=== PATIENT | male | born 1940 | race Caucasian/White ===

== ENCOUNTER → 2018-01-30 10:20 | Outpatient (CLI) | payer MEDICARE, SELFPAY ==
[2018-01-30 13:31] LABS: Absolute Lymphocyte Count 2.28 X10^3/ul (0.83-4.51); Absolute Neutrophil Count 1.5 X10^3/uL (2.0-7.7); Basophil# 0.01 X10^3/uL; Basophil% 0.2 % (0-1); Eosinophil# 0.11 X10^3/uL; Eosinophils% 2.5 % (0-5); Hematocrit 40.6 % (40-54); Hemoglobin 13.7 g/dl (13.0-16.5); Lymphocyte # 2.28 X10^3/ul (4.0); Lymphocyte % 51.7 % (19-41); Mean Corp Hgb Conc 33.7 g/gl (32-36); Mean Corpuscular Hgb 34.3 pg (27.0-32.0); Mean Corpuscular Volume 101.8 fL (80-94); Mean Platelet Vol. 10.3 fl (6.2-12.0); Monocyte# 0.49 X10^3/uL; Monocyte% 11.1 % (0-10); Neutrophil # 1.51 X10^3/uL (2.7-7.7); Neutrophil % 34.3 % (47-70); Platelet Count 96 K/mm3 (150-450); RBC Distribution Width CV 13.9 % (11.6-14.6); RBC Distribution Width SD 50.9 fl (35.1-43.9); Red Blood Count 3.99 M/mm3 (4.6-6.2); White Blood Count 4.4 K/mm3 (4.4-11.0)
[2018-01-30 13:34] LABS: POSITIVE COUNT NO; POSITIVE DIFFERENTIAL NO; POSITIVE MORPHOLOGY NO
[2018-01-30 14:02] LABS: ALB/GLOB Ratio 0.9 RATIO (0.9-2.4); AST(SGOT) 26 U/L (15-37); Alanine Aminotransfer ALT/SGPT 27 U/L (16-61); Albumin, Serum 3.6 g/dL (3.2-5.0); Alkaline Phosphatase 102 U/L (45-117); Anion Gap 5 (5-15); BUN 12 mg/dL (7-18); BUN/Creat Ratio 12.9 RATIO (10-20); Calcium,Total 8.4 mg/dL (8.5-10.1); Chloride 107 mmol/L (98-107); Creatinine, Serum 0.93 mg/dL (0.70-1.30); EST Glomerular Filtration Rate 84 mL/min (>60); Est Glom Filt Rate - Afr Amer 102 mL/min (>60); Glucose 96 mg/dL (74-106); Potassium 3.9 mmol/L (3.5-5.1); Protein, Total 7.6 g/dL (6.4-8.2); Sodium Level 140 mmol/L (136-145); Thyroid Stim Hormone (TSH) 1.96 uIU/mL (0.358-3.74)
== END ==
PROVIDERS: Family Provider Family Medicine Geriatric Medicine; PCP Family Medicine Geriatric Medicine; Visit Provider Family Medicine Geriatric Medicine
DX: E11.9 Type 2 diabetes mellitus without complications (principal); I10 Essential (primary) hypertension; E55.9 Vitamin D deficiency, unspecified
CPT/HCPCS: 36415; 80053; 82306; 84403; 84443; 85025

== ENCOUNTER → 2018-07-28 13:56 | Outpatient (CLI) | payer MEDICARE, SELFPAY ==
[2018-07-28 15:16] LABS: Absolute Lymphocyte Count 2.24 X10^3/ul (0.83-4.51); Absolute Neutrophil Count 1.4 X10^3/uL (2.0-7.7); Basophil# 0.01 X10^3/uL; Basophil% 0.2 % (0-1); Eosinophil# 0.11 X10^3/uL; Eosinophils% 2.6 % (0-5); Hematocrit 41.5 % (40-54); Hemoglobin 13.7 g/dl (13.0-16.5); Lymphocyte # 2.24 X10^3/ul (4.0); Lymphocyte % 52.3 % (19-41); Mean Corpuscular Hgb 33.8 pg (27.0-32.0); Mean Corpuscular Volume 102.5 fL (80-94); Mean Platelet Vol. 10.9 fl (6.2-12.0); Monocyte# 0.54 X10^3/uL; Monocyte% 12.6 % (0-10); Neutrophil # 1.37 X10^3/uL (2.7-7.7); Neutrophil % 32.1 % (47-70); Platelet Count 96 K/mm3 (150-450); RBC Distribution Width CV 14.3 % (11.6-14.6); RBC Distribution Width SD 53.2 fl (35.1-43.9); Red Blood Count 4.05 M/mm3 (4.6-6.2); White Blood Count 4.3 K/mm3 (4.4-11.0)
[2018-07-28 15:22] LABS: POSITIVE COUNT NO; POSITIVE DIFFERENTIAL NO; POSITIVE MORPHOLOGY NO
[2018-07-28 16:03] LABS: Vitamin D,25 Hydroxy 29.5 ng/mL (29.95-100.01)
[2018-07-28 16:08] LABS: ALB/GLOB Ratio 0.9 RATIO (0.9-2.4); AST(SGOT) 19 U/L (15-37); Alanine Aminotransfer ALT/SGPT 26 U/L (16-61); Albumin, Serum 3.5 g/dL (3.2-5.0); Alkaline Phosphatase 97 U/L (45-117); Anion Gap 6 (5-15); BUN 14 mg/dL (7-18); Calcium,Total 8.7 mg/dL (8.5-10.1); Chloride 107 mmol/L (98-107); Cholesterol 159 mg/dL (200); Creatinine, Serum 0.93 mg/dL (0.70-1.30); EST Glomerular Filtration Rate 84 mL/min (>60); Est Glom Filt Rate - Afr Amer 101 mL/min (>60); Globulin 3.9 g/dL (2.2-4.2); Glucose 84 mg/dL (74-106); High Density Lipoprotein 41 mg/dL; Potassium 3.9 mmol/L (3.5-5.1); Protein, Total 7.4 g/dL (6.4-8.2); Sodium Level 144 mmol/L (136-145); Thyroid Stim Hormone (TSH) 2.04 uIU/mL (0.358-3.74); Triglycerides 213 mg/dL; Very Low Density Lipoprotein 43 mg/dL (5-40)
== END ==
PROVIDERS: Family Provider Family Medicine Geriatric Medicine; PCP Family Medicine Geriatric Medicine; Referring Provider Family Medicine Geriatric Medicine; Visit Provider Family Medicine Geriatric Medicine
DX: E11.9 Type 2 diabetes mellitus without complications (principal); I10 Essential (primary) hypertension; E55.9 Vitamin D deficiency, unspecified; E23.6 Other disorders of pituitary gland; E78.49 Other hyperlipidemia
CPT/HCPCS: 36415; 80053; 80061; 82306; 84403; 84443; 85025

== ENCOUNTER → 2019-02-01 13:01 | Outpatient (CLI) | payer MEDICARE, SELFPAY ==
[2019-02-01 13:51] LABS: Absolute Lymphocyte Count 2.44 X10^3/ul (0.83-4.51); Absolute Neutrophil Count 1.4 X10^3/uL (2.0-7.7); Basophil# 0.01 X10^3/uL; Basophil% 0.2 % (0-1); Eosinophil# 0.09 X10^3/uL; Eosinophils% 2.1 % (0-5); Hematocrit 37.7 % (40-54); Hemoglobin 12.7 g/dl (13.0-16.5); Lymphocyte # 2.44 X10^3/ul (4.0); Lymphocyte % 55.8 % (19-41); Mean Corp Hgb Conc 33.7 g/gl (32-36); Mean Corpuscular Volume 101.1 fL (80-94); Mean Platelet Vol. 10.2 fl (6.2-12.0); Monocyte# 0.41 X10^3/uL; Monocyte% 9.4 % (0-10); Neutrophil # 1.41 X10^3/uL (2.7-7.7); Neutrophil % 32.3 % (47-70); Platelet Count 105 K/mm3 (150-450); RBC Distribution Width CV 14.3 % (11.6-14.6); RBC Distribution Width SD 52.7 fl (35.1-43.9); Red Blood Count 3.73 M/mm3 (4.6-6.2); White Blood Count 4.4 K/mm3 (4.4-11.0)
[2019-02-01 13:59] LABS: POSITIVE COUNT NO; POSITIVE DIFFERENTIAL NO; POSITIVE MORPHOLOGY NO
[2019-02-01 14:19] LABS: AST(SGOT) 31 U/L (15-37); Alanine Aminotransfer ALT/SGPT 30 U/L (16-61); Albumin, Serum 3.5 g/dL (3.2-5.0); Alkaline Phosphatase 95 U/L (45-117); Anion Gap 4 (5-15); BUN 12 mg/dL (7-18); BUN/Creat Ratio 12.4 RATIO (10-20); Calcium,Total 8.8 mg/dL (8.5-10.1); Chloride 108 mmol/L (98-107); Cholesterol 162 mg/dL (200); Creatinine, Serum 0.97 mg/dL (0.70-1.30); EST Glomerular Filtration Rate 80 mL/min (>60); Est Glom Filt Rate - Afr Amer 97 mL/min (>60); Globulin 3.6 g/dL (2.2-4.2); Glucose 103 mg/dL (74-106); High Density Lipoprotein 40 mg/dL; Potassium 3.9 mmol/L (3.5-5.1); Protein, Total 7.1 g/dL (6.4-8.2); Sodium Level 143 mmol/L (136-145); Triglycerides 266 mg/dL; Very Low Density Lipoprotein 53 mg/dL (5-40); Vitamin D,25 Hydroxy 25.3 ng/mL (29.95-100.01)
== END ==
PROVIDERS: Family Provider Family Medicine Geriatric Medicine; PCP Family Medicine Geriatric Medicine; Referring Provider Family Medicine Geriatric Medicine; Visit Provider Family Medicine Geriatric Medicine
DX: I10 Essential (primary) hypertension (principal); E55.9 Vitamin D deficiency, unspecified; E23.6 Other disorders of pituitary gland; E78.5 Hyperlipidemia, unspecified
CPT/HCPCS: 36415; 80053; 80061; 82306; 84403; 84443; 85025

== ENCOUNTER → 2019-08-08 11:46 | Outpatient (CLI) | payer MEDICARE, SELFPAY ==
[2019-08-08 12:15] LABS: Absolute Lymphocyte Count 2.38 X10^3/uL (0.83-4.51); Absolute Neutrophil Count 1.5 X10^3/uL (2.0-7.7); Basophil# 0.02 X10^3/uL; Basophil% 0.4 % (0-1); Eosinophil# 0.13 X10^3/uL; Eosinophils% 2.9 % (0-5); Hematocrit 40.1 % (40-54); Hemoglobin 13.2 g/dL (13.0-16.5); Lymphocyte # 2.38 X10^3/ul (4.0); Lymphocyte % 53.4 % (19-41); Mean Corp Hgb Conc 32.9 g/dL (32-36); Mean Corpuscular Hgb 33.7 pg (27.0-32.0); Mean Corpuscular Volume 102.3 fL (80-94); Mean Platelet Vol. 10.1 fl (6.2-12.0); Monocyte# 0.44 X10^3/uL; Monocyte% 9.9 % (0-10); NRBC Flagged by Analyzer 0 % (0-5); Neutrophil # 1.48 X10^3/uL (2.7-7.7); Neutrophil % 33.2 % (47-70); Platelet Count 103 K/mm3 (150-450); RBC Distribution Width CV 14.2 % (11.6-14.6); RBC Distribution Width SD 53.1 fl (35.1-43.9); Red Blood Count 3.92 M/mm3 (4.6-6.2); White Blood Count 4.5 K/mm3 (4.4-11.0)
[2019-08-08 12:49] LABS: ALB/GLOB Ratio 0.9 RATIO (0.9-2.4); AST(SGOT) 26 U/L (15-37); Alanine Aminotransfer ALT/SGPT 24 U/L (16-61); Albumin, Serum 3.7 g/dL (3.2-5.0); Alkaline Phosphatase 105 U/L (45-117); Anion Gap 4 (5-15); BUN 15 mg/dL (7-18); BUN/Creat Ratio 14.7 RATIO (10-20); Calcium,Total 8.7 mg/dL (8.5-10.1); Chloride 108 mmol/L (98-107); Cholesterol 156 mg/dL (200); Creatinine, Serum 1.02 mg/dL (0.70-1.30); EST Glomerular Filtration Rate 75 mL/min (>60); Est Glom Filt Rate - Afr Amer 91 mL/min (>60); Glucose 101 mg/dL (74-106); High Density Lipoprotein 49 mg/dL; Potassium 3.9 mmol/L (3.5-5.1); Protein, Total 7.7 g/dL (6.4-8.2); Sodium Level 140 mmol/L (136-145); Thyroid Stim Hormone (TSH) 1.82 uIU/mL (0.358-3.74); Triglycerides 181 mg/dL; Very Low Density Lipoprotein 36 mg/dL (5-40)
== END ==
PROVIDERS: Family Provider Family Medicine Geriatric Medicine; PCP Family Medicine Geriatric Medicine; Referring Provider Family Medicine Geriatric Medicine; Visit Provider Family Medicine Geriatric Medicine
DX: E11.9 Type 2 diabetes mellitus without complications (principal); I10 Essential (primary) hypertension; E78.5 Hyperlipidemia, unspecified; E55.9 Vitamin D deficiency, unspecified; E23.6 Other disorders of pituitary gland
CPT/HCPCS: 36415; 80053; 80061; 82306; 83036; 84403; 84443; 85025

== ENCOUNTER → 2020-04-03 15:11 | Outpatient (CLI) | payer MEDICARE, SELFPAY ==
[2020-04-03 15:46] LABS: Absolute Lymphocyte Count 2.69 X10^3/uL (0.83-4.51); Absolute Neutrophil Count 1.3 X10^3/uL (2.0-7.7); Basophil# 0.02 X10^3/uL; Basophil% 0.4 % (0-1); Eosinophil# 0.12 X10^3/uL; Eosinophils% 2.6 % (0-5); Lymphocyte # 2.69 X10^3/ul (4.0); Lymphocyte % 58.7 % (19-41); Mean Corp Hgb Conc 33.3 g/dL (32-36); Mean Corpuscular Hgb 34.5 pg (27.0-32.0); Mean Corpuscular Volume 103.4 fL (80-94); Mean Platelet Vol. 10.3 fl (6.2-12.0); Monocyte# 0.45 X10^3/uL; Monocyte% 9.8 % (0-10); NRBC Flagged by Analyzer 0 % (0-5); Neutrophil # 1.29 X10^3/uL (2.7-7.7); Neutrophil % 28.3 % (47-70); Platelet Count 108 K/mm3 (150-450); RBC Distribution Width CV 14.4 % (11.6-14.6); RBC Distribution Width SD 54.7 fl (35.1-43.9); Red Blood Count 3.77 M/mm3 (4.6-6.2); White Blood Count 4.6 K/mm3 (4.4-11.0)
[2020-04-03 16:34] LABS: ALB/GLOB Ratio 0.9 RATIO (0.9-2.4); AST(SGOT) 23 U/L (15-37); Alanine Aminotransfer ALT/SGPT 30 U/L (16-61); Albumin, Serum 3.6 g/dL (3.2-5.0); Alkaline Phosphatase 97 U/L (45-117); Anion Gap 4 (5-15); BUN 17 mg/dL (7-18); BUN/Creat Ratio 14.9 RATIO (10-20); Chloride 106 mmol/L (98-107); Cholesterol 138 mg/dL (200); Creatinine, Serum 1.14 mg/dL (0.70-1.30); EST Glomerular Filtration Rate 66 mL/min (>60); Est Glom Filt Rate - Afr Amer 80 mL/min (>60); Globulin 3.8 g/dL (2.2-4.2); Glucose 108 mg/dL (74-106); High Density Lipoprotein 42 mg/dL; Potassium 3.9 mmol/L (3.5-5.1); Protein, Total 7.4 g/dL (6.4-8.2); Sodium Level 143 mmol/L (136-145); Triglycerides 253 mg/dL; Very Low Density Lipoprotein 51 mg/dL (5-40)
[2020-04-03 16:53] LABS: Vitamin D,25 Hydroxy 39.5 ng/mL
== END ==
PROVIDERS: PCP Family Medicine Geriatric Medicine; Referring Provider Family Medicine Geriatric Medicine; Visit Provider Family Medicine Geriatric Medicine
DX: I10 Essential (primary) hypertension (principal); E78.5 Hyperlipidemia, unspecified; E23.6 Other disorders of pituitary gland; E55.9 Vitamin D deficiency, unspecified
CPT/HCPCS: 36415; 80053; 80061; 82306; 84403; 84443; 85025

== ENCOUNTER → 2020-09-29 13:44 | Outpatient (CLI) | payer MEDICARE, SELFPAY ==
[2020-09-29 17:26] LABS: Absolute Lymphocyte Count 2.39 X10^3/uL (0.83-4.51); Absolute Neutrophil Count 1.8 X10^3/uL (2.0-7.7); Basophil# 0.02 X10^3/uL; Basophil% 0.4 % (0-1); Eosinophil# 0.13 X10^3/uL; Eosinophils% 2.6 % (0-5); Hematocrit 39.8 % (40-54); Hemoglobin 13.1 g/dL (13.0-16.5); Lymphocyte # 2.39 X10^3/ul (4.0); Lymphocyte % 48.6 % (19-41); Mean Corp Hgb Conc 32.9 g/dL (32-36); Mean Corpuscular Volume 103.4 fL (80-94); Monocyte# 0.57 X10^3/uL; Monocyte% 11.6 % (0-10); NRBC Flagged by Analyzer 0 % (0-5); Neutrophil % 36.6 % (47-70); Platelet Count 110 K/mm3 (150-450); RBC Distribution Width CV 14.6 % (11.6-14.6); RBC Distribution Width SD 54.6 fl (35.1-43.9); Red Blood Count 3.85 M/mm3 (4.6-6.2); White Blood Count 4.9 K/mm3 (4.4-11.0)
[2020-09-29 17:53] LABS: Vitamin D,25 Hydroxy 41.7 ng/mL
[2020-09-29 17:56] LABS: ALB/GLOB Ratio 0.9 RATIO (0.9-2.4); AST(SGOT) 20 U/L (15-37); Alanine Aminotransfer ALT/SGPT 22 U/L (16-61); Albumin, Serum 3.6 g/dL (3.2-5.0); Alkaline Phosphatase 107 U/L (45-117); Anion Gap 5 (5-15); BUN 13 mg/dL (7-18); BUN/Creat Ratio 11.7 RATIO (10-20); Chloride 109 mmol/L (98-107); Cholesterol 141 mg/dL (200); Creatinine, Serum 1.11 mg/dL (0.70-1.30); EST Glomerular Filtration Rate 68 mL/min (>60); Est Glom Filt Rate - Afr Amer 82 mL/min (>60); Globulin 3.8 g/dL (2.2-4.2); Glucose 82 mg/dL (74-106); High Density Lipoprotein 45 mg/dL; Potassium 3.7 mmol/L (3.5-5.1); Protein, Total 7.4 g/dL (6.4-8.2); Sodium Level 143 mmol/L (136-145); Triglycerides 191 mg/dL; Very Low Density Lipoprotein 38 mg/dL (5-40)
[2020-09-29 18:43] LABS: Hemoglobin A1c 5.4 % (3.8-5.6)
== END ==
PROVIDERS: PCP Family Medicine Geriatric Medicine; Visit Provider Family Medicine Geriatric Medicine
DX: E11.9 Type 2 diabetes mellitus without complications (principal); E23.6 Other disorders of pituitary gland; I10 Essential (primary) hypertension; E78.5 Hyperlipidemia, unspecified; E55.9 Vitamin D deficiency, unspecified
CPT/HCPCS: 36415; 80053; 80061; 82306; 83036; 84403; 85025

== ENCOUNTER → 2021-04-13 08:17 | Outpatient (CLI) | payer MEDICARE, SELFPAY ==
[2021-04-13 09:05] LABS: Absolute Lymphocyte Count 1.64 X10^3/uL (0.83-4.51); Absolute Neutrophil Count 1.1 X10^3/uL (2.0-7.7); Basophil# 0.01 X10^3/uL; Basophil% 0.3 % (0-1); Eosinophil# 0.12 X10^3/uL; Eosinophils% 3.7 % (0-5); Hemoglobin 11.9 g/dL (13.0-16.5); Lymphocyte # 1.64 X10^3/ul (0.83-4.51); Lymphocyte % 50.9 % (19-41); Mean Corp Hgb Conc 32.2 g/dL (32-36); Mean Corpuscular Hgb 31.4 pg (27.0-32.0); Mean Corpuscular Volume 97.6 fL (80-94); Mean Platelet Vol. 10.3 fl (6.2-12.0); Monocyte# 0.37 X10^3/uL; Monocyte% 11.5 % (0-10); NRBC Flagged by Analyzer 0 % (0-5); Neutrophil # 1.08 X10^3/uL (2.7-7.7); Neutrophil % 33.6 % (47-70); Platelet Count 109 K/mm3 (150-450); RBC Distribution Width CV 15.2 % (11.6-14.6); RBC Distribution Width SD 54.6 fl (35.1-43.9); Red Blood Count 3.79 M/mm3 (4.6-6.2); White Blood Count 3.2 K/mm3 (4.4-11.0)
[2021-04-13 09:27] LABS: Hemoglobin A1c 5.9 % (3.8-5.6)
[2021-04-13 09:47] LABS: AST(SGOT) 22 U/L (15-37); Alanine Aminotransfer ALT/SGPT 21 U/L (16-61); Albumin, Serum 3.5 g/dL (3.2-5.0); Alkaline Phosphatase 112 U/L (45-117); Anion Gap 7 (5-15); BUN 15 mg/dL (7-18); Calcium,Total 8.5 mg/dL (8.5-10.1); Chloride 105 mmol/L (98-107); Cholesterol 141 mg/dL (200); EST Glomerular Filtration Rate 77 mL/min (>60); Est Glom Filt Rate - Afr Amer 93 mL/min (>60); Globulin 3.6 g/dL (2.2-4.2); Glucose 148 mg/dL (74-106); High Density Lipoprotein 41 mg/dL; Potassium 3.8 mmol/L (3.5-5.1); Protein, Total 7.1 g/dL (6.4-8.2); Sodium Level 141 mmol/L (136-145); Thyroid Stim Hormone (TSH) 1.28 uIU/mL (0.358-3.74); Triglycerides 132 mg/dL; Very Low Density Lipoprotein 26 mg/dL (5-40)
== END ==
PROVIDERS: PCP Family Medicine Geriatric Medicine; Referring Provider Family Medicine Geriatric Medicine; Visit Provider Family Medicine Geriatric Medicine
DX: E11.9 Type 2 diabetes mellitus without complications (principal); I10 Essential (primary) hypertension; E23.6 Other disorders of pituitary gland; E78.5 Hyperlipidemia, unspecified; E55.9 Vitamin D deficiency, unspecified
CPT/HCPCS: 36415; 80053; 80061; 82306; 83036; 84403; 84443; 85025

== ENCOUNTER → 2021-05-14 10:01 | Outpatient (CLI) | payer MEDICARE, SELFPAY ==
[2021-05-14 10:36] LABS: Absolute Neutrophil Count 1.4 X10^3/uL (2.0-7.7); Basophil# 0.02 X10^3/uL; Basophil% 0.4 % (0-1); Eosinophil# 0.15 X10^3/uL; Eosinophils% 2.8 % (0-5); Hematocrit 36.9 % (40-54); Hemoglobin 11.9 g/dL (13.0-16.5); Lymphocyte % 57.5 % (19-41); Mean Corp Hgb Conc 32.2 g/dL (32-36); Mean Corpuscular Hgb 31.7 pg (27.0-32.0); Mean Corpuscular Volume 98.4 fL (80-94); Mean Platelet Vol. 10.8 fl (6.2-12.0); Monocyte# 0.71 X10^3/uL; Monocyte% 13.2 % (0-10); NRBC Flagged by Analyzer 0 % (0-5); Neutrophil # 1.41 X10^3/uL (2.7-7.7); Neutrophil % 26.1 % (47-70); Platelet Count 112 K/mm3 (150-450); RBC Distribution Width CV 15.9 % (11.6-14.6); RBC Distribution Width SD 56.7 fl (35.1-43.9); Red Blood Count 3.75 M/mm3 (4.6-6.2); White Blood Count 5.4 K/mm3 (4.4-11.0)
== END ==
PROVIDERS: PCP Family Medicine Geriatric Medicine; Referring Provider Family Medicine Geriatric Medicine; Visit Provider Family Medicine Geriatric Medicine
DX: D64.9 Anemia, unspecified (principal)
CPT/HCPCS: 36415; 85025

== ENCOUNTER 2021-08-13 11:27 | Emergency (ER) | payer MEDICARE, SELFPAY ==
[2021-08-13 11:28] VITALS: BP 167/79; PULSE 71; RESP 16; TEMP 36.2; O2SAT 98; BMI 31.3
--- NOTE | 2021-08-13 12:45 | EKG12_ITS ---
Test Reason : GI BLEED Blood Pressure : / mmHG Vent. Rate : 062 BPM Atrial Rate : 062 BPM P-R Int : 220 ms QRS Dur : 154 ms QT Int : 456 ms P-R-T Axes : 038 -29 117 degrees QTc Int : 462 ms Sinus rhythm with sinus arrhythmia with 1st degree A-V block Left bundle branch block Abnormal ECG Confirmed by JOSLYN GARCIAS, RAF ([id number]), purchasing expeditor OLI SANDY ([id number]) on 08/14/2021 1:52:22 PM Referred By: GLORIA Confirmed By:RAF JORGENSEN MD
[2021-08-13 13:14] VITALS: BP 162/88; PULSE 83; RESP 13; O2SAT 97
[2021-08-13 13:22] LABS: Absolute Neutrophil Count 2.4 X10^3/uL (2.0-7.7); Basophil# 0.01 X10^3/uL; Basophil% 0.2 % (0-1); Eosinophil# 0.06 X10^3/uL; Eosinophils% 1.3 % (0-5); Hematocrit 31.7 % (40-54); Hemoglobin 10.1 g/dL (13.0-16.5); Lymphocyte % 35.3 % (19-41); Mean Corp Hgb Conc 31.9 g/dL (32-36); Mean Corpuscular Hgb 30.9 pg (27.0-32.0); Mean Corpuscular Volume 96.9 fL (80-94); Mean Platelet Vol. 10.4 fl (6.2-12.0); Monocyte# 0.42 X10^3/uL; Monocyte% 9.3 % (0-10); NRBC Flagged by Analyzer 0 % (0-5); Neutrophil # 2.43 X10^3/uL (2.7-7.7); Neutrophil % 53.7 % (47-70); Platelet Count 101 K/mm3 (150-450); RBC Distribution Width CV 15.6 % (11.6-14.6); RBC Distribution Width SD 55.2 fl (35.1-43.9); Red Blood Count 3.27 M/mm3 (4.6-6.2); White Blood Count 4.5 K/mm3 (4.4-11.0)
--- NOTE | 2021-08-13 13:32 | ED.VIS.GI ---
HPI HPI - GI History of Present Illness Chief Complaint: GI Bleed Informant: patient Narrative Narrative: Patient is a 81-year-old male with history of thrombocytopenia, myelodysplastic syndrome, coronary artery disease, ulcerative colitis and total colectomy with ostomy presenting with black/red blood in his ostomy. He states it started last night. The bag is filled up twice and it was changed around 9 AM this morning. Patient states he feels a little wobbly and weak. He is not on any anticoagulation. He is on aspirin 81 mg daily. He is never had this before. He denies any history of acid reflux. He notes he eats [employer] office because he likes the way they taste. He denies any significant use of ibuprofen or alcohol. No abdominal pain. No other complaints at this time. PFSH PFSH Home Medications Lactobacillus rhamnosus GG [Culturelle Kids Probiotics] 1 ea PO DAILY PRN PRN 10/08/13 [History Last Taken 07/03/14 08:00] amlodipine 5 mg PO DAILY 07/20/16 [History Last Taken 07/20/16] losartan 100 mg PO DAILY 07/20/16 [History Last Taken 07/20/16] multivitamin [Daily Multiple] 1 ea PO DAILY 07/20/16 [History Last Taken 07/19/16] aspirin 81 mg PO DAILY@0800 tab.chew 07/21/16 [Rx Last Taken Unknown] atorvastatin 20 mg PO QHS #30 tablet 07/21/16 [Rx Last Taken Unknown] metoprolol succinate 50 mg PO DAILY #30 tablet 07/21/16 [Rx Last Taken Unknown] sertraline 50 mg PO DAILY #30 tablet 07/21/16 [Rx Last Taken Unknown] Allergy/AdvReac Type Severity Reaction Status Date / Time No Known Allergies Allergy Verified 08/13/21 11:33 Social History Smoking Status: Former smoker ROS ROS ED Constitutional Constitutional ED: Denies chills or fever(s) ENT ENT ED: Denies rhinorrhea or sore throat Cardiovascular Cardiovascular: Denies chest pain or palpitations Respiratory/Chest Respiratory/Chest: Denies cough or dyspnea Gastrointestinal Gastrointestinal: Reports melena; Denies abdominal pain, nausea or vomiting Genitourinary Genitourinary ED: Denies dysuria Musculoskeletal Musculoskeletal: Denies arthralgias or myalgias Integumentary Denies rash Neurologic Neurologic: Denies headache(s) or weakness Psychiatric Psychiatric: Denies depression EXAM Physical Exam Const Vital Signs: 08/13/21 11:28 08/13/21 13:14 08/13/21 14:28 Temperature 97.1 F L Temperature Source Temporal Pulse Rate 71 83 57 L Respiratory Rate 16 13 17 Blood Pressure 167/79 H 162/88 H 155/83 H Blood Pressure Mean 108 112 107 Pulse Ox 98 97 97 Oxygen Delivery Method Room Air Room Air Room Air Positive well nourished and well developed General Appearance ED: well developed; Negative for pallor HEENT Reports moist mucous membranes normocephalic Eyes PERRL and EOMs intact bilaterally General Eye ED: Negative for pale conjunctiva Neck no lymphadenopathy and supple Resp normal respiratory effort and clear to auscultation bilaterally Cardio regular rate, regular rhythm and no murmurs GI non-tender and non-distended GI Narrative: Ostomy in place. There is thick jelly like black/red stool in the bag. Auscultation: normoactive bowel sounds Palpation: soft Extremity full ROM General Extremety ED: Negative for edema General Extremity: Negative for edema Neuro moves all extremities Sensorium / Orientation: alert Motor Exam: Negative for general weakness Psych mental status grossly normal and thought process normal Skin General Skin Exam: Negative for jaundice or pallor Rashes: no rashes MDM MDM MDM Narrative Medical decision making narrative: Patient is evaluated for the change in the color of his ostomy output. It has been black/dark red since last night. He is concerned he could have a GI bleed. It is Hemoccult negative and his hemoglobin is close to his baseline at 10.1. He had a hemoglobin of 11 in April of this year. He is not on any anticoagulation. He has a chronic thrombocytopenia which is stable. His BUN is also at his baseline. He denies any abdominal pain and has no recent history of GI bleeding. He has been eating a lot of blueberries and been drinking blueberry wine. I question if this could be food contamination that is causing the stool color change. Will repeat H&H in 4 hours to confirm that it is stable. As long as patient remains hemodynamically stable he will be discharged home to follow-up outpatient with GI. RADHA, Friend, did think that he would likely benefit from a capsule study. If he has a drop in his H&H patient be admitted for further monitoring and treatment. Lab Data Attestation: I reviewed the patient's lab results. Labs: Laboratory Results - last 24 hr 08/13/21 08/13/21 08/13/21 13:08 13:08 13:08 WBC 4.5 RBC 3.27 L Hgb 10.1 L Hct 31.7 L MCV 96.9 H MCH 30.9 MCHC 31.9 L RDW Std Deviation 55.2 H RDW Coeff of Wilian 15.6 H Plt Count 101 L MPV 10.4 Immature Gran % (Auto) 0.200 Neut % (Auto) 53.7 Lymph % (Auto) 35.3 [place] % (Auto) 9.3 Eos % (Auto) 1.3 Baso % (Auto) 0.2 Absolute Neuts (auto) 2.4 Absolute Lymphs (auto) 1.60 Nucleated RBC % 0 Sodium 143 Potassium 4.0 Chloride 109 H Carbon Dioxide 30.0 Anion Gap 4 L BUN 26 H Creatinine 1.05 Estim Creat Clear Calc 55.19 Est GFR (MDRD) Af Amer 88 Est GFR (MDRD) Non-Af 72 BUN/Creatinine Ratio 24.8 H Glucose 113 H Lactic Acid 0.8 Calcium 9.1 Total Bilirubin 0.40 AST 17 ALT 18 Alkaline Phosphatase 86 Total Protein 6.5 Albumin 3.0 L Globulin 3.5 Albumin/Globulin Ratio 0.9 Lipase 220 Blood Type Antibody Screen 08/13/21 13:08 WBC RBC Hgb Hct MCV MCH MCHC RDW Std Deviation RDW Coeff of Wilian Plt Count MPV Immature Gran % (Auto) Neut % (Auto) Lymph % (Auto) [place] % (Auto) Eos % (Auto) Baso % (Auto) Absolute Neuts (auto) Absolute Lymphs (auto) Nucleated RBC % Sodium Potassium Chloride Carbon Dioxide Anion Gap BUN Creatinine Estim Creat Clear Calc Est GFR (MDRD) Af Amer Est GFR (MDRD) Non-Af BUN/Creatinine Ratio Glucose Lactic Acid Calcium Total Bilirubin AST ALT Alkaline Phosphatase Total Protein Albumin Globulin Albumin/Globulin Ratio Lipase Blood Type B POSITIVE Antibody Screen NEGATIVE Rhythm Strip Rhythm Strip: Sinus Rhythm Rate: 62 Ectopy: None EKG Initial EKG: Attestation: I personally reviewed and interpreted this EKG as follows: Interpretation: Sinus Rhythm Comments: Sinus rhythm with sinus arrhythmia and first-degree AV block Left bundle branch block Left axis deviation Normal ST segments Discharge Plan Triage Chief Complaint: GI Bleed ED Provider: Barby Diaz Dx/Rx/DC Orders Clinical Impression: Chronic anemia, Dark red stool Prescriptions: No Action Lactobacillus rhamnosus GG [Culturelle Kids Probiotics] 1 EACH Tab.Chew 1 ea PO DAILY PRN PRN (Reason: COLITIS) RF: 0 multivitamin [Daily Multiple] 1 EACH tablet 1 ea PO DAILY RF: 0 amlodipine 5 MG tablet 5 mg PO DAILY RF: 0 losartan 100 MG tablet 100 mg PO DAILY RF: 0 aspirin 81 MG Tab.Chew 81 mg PO DAILY@0800 RF: 0 metoprolol succinate 50 MG tablet 50 mg PO DAILY Qty: 30 RF: 0 sertraline 50 MG tablet 50 mg PO DAILY Qty: 30 RF: 0 atorvastatin 20 MG tablet 20 mg PO QHS Qty: 30 RF: 0 Primary Care Provider: David Medellin Chi Referrals: Mark Jang DO [STAFF PHYSICIAN] - 3-5 Days David Medellin Chi, MD [Primary Care Provider] - Activity Restrictions/Additional Instructions: I suspect the black/red appearance of your ostomy output is secondary to what you been eating and not blood. Your hemoglobin is stable and you are safe to go home. Please return the emergency room if you have any lightheadedness, worsening symptoms or further concerns. Please follow-up with GI. You been referred to Dr. Jang today. Disposition Disposition: Home, Self Care
[2021-08-13 13:52] LABS: ALB/GLOB Ratio 0.9 RATIO (0.9-2.4); AST(SGOT) 17 U/L (15-37); Alanine Aminotransfer ALT/SGPT 18 U/L (16-61); Alkaline Phosphatase 86 U/L (45-117); Anion Gap 4 (5-15); BUN 26 mg/dL (7-18); BUN/Creat Ratio 24.8 RATIO (10-20); Calcium,Total 9.1 mg/dL (8.5-10.1); Chloride 109 mmol/L (98-107); Creatinine, Serum 1.05 mg/dL (0.70-1.30); EST Glomerular Filtration Rate 72 mL/min (>60); Est Glom Filt Rate - Afr Amer 88 mL/min (>60); Estimated Creatinine Clearance 55.19 ml/min; Globulin 3.5 g/dL (2.2-4.2); Glucose 113 mg/dL (74-106); Lipase 220 U/L (73-393); Protein, Total 6.5 g/dL (6.4-8.2); Sodium Level 143 mmol/L (136-145)
[2021-08-13 13:55] LABS: Lactic Acid 0.8 mmol/L (0.4-1.9)
[2021-08-13 14:28] VITALS: BP 155/83; PULSE 57; RESP 17; O2SAT 97
[2021-08-13 15:52] LABS: Hematocrit 29.7 % (40-54); Hemoglobin 9.4 g/dL (13.0-16.5)
[2021-08-13 16:11] VITALS: BP 159/111
[2021-08-13 17:47] LABS: Absolute Lymphocyte Count 1.77 X10^3/uL (0.83-4.51); Absolute Neutrophil Count 1.8 X10^3/uL (2.0-7.7); Basophil# 0.01 X10^3/uL; Basophil% 0.2 % (0-1); Eosinophil# 0.11 X10^3/uL; Eosinophils% 2.6 % (0-5); Hematocrit 28.8 % (40-54); Hemoglobin 9.3 g/dL (13.0-16.5); Lymphocyte # 1.77 X10^3/ul (0.83-4.51); Lymphocyte % 42.1 % (19-41); Mean Corp Hgb Conc 32.3 g/dL (32-36); Mean Corpuscular Hgb 31.4 pg (27.0-32.0); Mean Corpuscular Volume 97.3 fL (80-94); Mean Platelet Vol. 9.5 fl (6.2-12.0); Monocyte# 0.47 X10^3/uL; Monocyte% 11.2 % (0-10); NRBC Flagged by Analyzer 0 % (0-5); Neutrophil # 1.84 X10^3/uL (2.7-7.7); Neutrophil % 43.9 % (47-70); POSITIVE COUNT YES; Platelet Count 91 K/mm3 (150-450); RBC Distribution Width CV 15.7 % (11.6-14.6); RBC Distribution Width SD 55.8 fl (35.1-43.9); Red Blood Count 2.96 M/mm3 (4.6-6.2); White Blood Count 4.2 K/mm3 (4.4-11.0)
[2021-08-13 17:50] LABS: Differential Indicated SCAN CRITERIA MET
[2021-08-13 18:21] VITALS: BP 138/74; PULSE 81; RESP 16; O2SAT 98
[2021-08-13 18:28] LABS: Differential Comment SCANNED
== END 2021-08-13 18:21 | disposition home or self-care (01) ==
PROVIDERS: Emergency Medicine; Emergency Provider Emergency Medicine; PCP Family Medicine Geriatric Medicine
DX: R19.5 Other fecal abnormalities (principal); D46.9 Myelodysplastic syndrome, unspecified; K51.90 Ulcerative colitis, unspecified, without complications; Z93.3 Colostomy status; D69.6 Thrombocytopenia, unspecified; I25.10 Atherosclerotic heart disease of native coronary artery without angina pectoris; Z79.82 Long term (current) use of aspirin; Z79.899 Other long term (current) drug therapy; Z87.891 Personal history of nicotine dependence; Z90.49 Acquired absence of other specified parts of digestive tract
CPT/HCPCS: 80053; 82274; 83605; 83690; 85014; 85018; 85025; 86850; 86900; 86901; 93005; 96374; 99283; J7050; A4216; J3490

== ENCOUNTER → 2021-08-14 11:36 | Outpatient (CLI) | payer MEDICARE, SELFPAY ==
[2021-08-14 13:04] LABS: Absolute Neutrophil Count 1.7 X10^3/uL (2.0-7.7); Basophil# 0.01 X10^3/uL; Basophil% 0.3 % (0-1); Eosinophil# 0.07 X10^3/uL; Hemoglobin 9.9 g/dL (13.0-16.5); Immature Platelet Fraction 3.1 % (1.0-7.9); Lymphocyte % 39.8 % (19-41); Mean Corp Hgb Conc 31.9 g/dL (32-36); Mean Corpuscular Hgb 31.6 pg (27.0-32.0); Mean Platelet Vol. 11.1 fl (6.2-12.0); Monocyte# 0.29 X10^3/uL; Monocyte% 8.2 % (0-10); NRBC Flagged by Analyzer 0 % (0-5); Neutrophil # 1.74 X10^3/uL (2.7-7.7); Neutrophil % 49.4 % (47-70); Platelet Count 107 K/mm3 (150-450); RBC Distribution Width CV 15.7 % (11.6-14.6); RBC Distribution Width SD 55.9 fl (35.1-43.9); RET-HE 32.7 pg (30-35); Red Blood Count 3.13 M/mm3 (4.6-6.2); Reticulocyte Count 2.39 % (0.5-1.5); White Blood Count 3.5 K/mm3 (4.4-11.0)
[2021-08-14 13:13] LABS: Vitamin B12 801 pg/mL (211-911)
[2021-08-14 13:52] LABS: Ferritin 12 ng/mL (26-388); Iron 33 ug/dL (65-175); Iron Binding Capacity,Total 351 ug/dL (250-450); PERCENT IRON SATURATION 9.4 % (15.0-55.0)
== END ==
PROVIDERS: PCP Family Medicine Geriatric Medicine; Visit Provider Family Medicine Geriatric Medicine
DX: D64.9 Anemia, unspecified (principal)
CPT/HCPCS: 36415; 82607; 82728; 82746; 83540; 83550; 85025; 85045

== ENCOUNTER 2021-10-02 12:28 | Observation (INO) | payer MEDICARE, SELFPAY ==
[2021-10-02 12:28] VITALS: BP 184/101; PULSE 88; RESP 18; TEMP 36.8; O2SAT 98; BMI 31.9
--- NOTE | 2021-10-02 12:47 | CT_ITS ---
STUDY: CT ABDOMEN AND PELVIS WITH CONTRAST REASON FOR EXAM: Male, 81 years old. Abdominal pain -- IV PO Contrast. Vomiting. No stool output from the stoma. RADIATION DOSAGE (If Supplied By Facility): CTDIvol = ( 14.28 ) mGy, DLP = ( 1034.67 ) mGycm TECHNIQUE: Transaxial images were obtained from the dome of the diaphragm to the symphysis pubis without oral contrast. Oral and amp; IV Gastrografin and amp; 100mL Isovue-300 was administered. Sagittal and coronal images were reconstructed. Individualized dose optimization techniques were used for this CT. COMPARISON: None. FINDINGS: The visualized lung bases are unremarkable. Coronary artery calcification. Normal liver. There are surgical clips in the gallbladder fossa consistent with a prior cholecystectomy. Normal spleen. Normal pancreas. Normal bilateral adrenal glands. There is a 2 mm nonobstructive calculus in the lower pole of the right kidney. Normal left kidney. The stomach is distended with oral contrast ingestion. Normal small intestine. A colostomy is seen in the anterior right lower quadrant. The rectosigmoid colon is collapsed. The patient is status post right hemicolectomy. There is diffuse atherosclerotic calcification of the abdominal aorta and its major visceral branches, without a demonstrated aneurysm. Normal inferior vena cava. Normal retroperitoneum. Normal urinary bladder. Normal abdominal wall. There are diffuse degenerative changes of the visualized lumbar spine. 50% loss of height of the L1 and L2 vertebrae. CT/Abdomen/Pelvis WITH Contrast IMPRESSION: A colostomy is seen in the anterior right lower quadrant. The small bowel dimension measures upper limits of normal. Electronically Signed: Raghavendra Soto MD at 15:11 EST , Service support ,
--- NOTE | 2021-10-02 12:49 | ED.VIS.GI ---
HPI HPI - GI History of Present Illness Chief Complaint: Abd Pain Detail of Chief Complaint: Abdominal pain that started last evening around dinnertime Informant: patient and spouse/S.O. Narrative Narrative: Patient presents to the emergency department chief complaint of abdominal pain that started last evening. Patient complains of of nausea and vomiting x4 throughout the night once this morning. Patient states that he has a colostomy and has not had much output from it since yesterday. Patient has history of hypertension, high cholesterol, prior stroke, and coronary artery disease. Patient denies any fevers. He denies any hematemesis. Colostomy was performed years ago at the [facility]. [facility] Medical History (Updated 10/02/21 @ 16:[address] Song Villafana, ) Chronic GI bleeding Ulcerative colitis Home Medications amlodipine 5 mg PO DAILY 07/20/16 [History Last Taken 07/20/16] losartan 100 mg PO DAILY 07/20/16 [History Last Taken 07/20/16] multivitamin [Daily Multiple] 1 ea PO DAILY 07/20/16 [History Last Taken 07/19/16] aspirin 81 mg PO DAILY@0800 tab.chew 07/21/16 [Rx Last Taken Unknown] atorvastatin 20 mg PO QHS #30 tablet 07/21/16 [Rx Last Taken Unknown] metoprolol succinate 50 mg PO DAILY #30 tablet 07/21/16 [Rx Last Taken Unknown] sertraline 50 mg PO DAILY #30 tablet 07/21/16 [Rx Last Taken Unknown] ascorbate calcium (vitamin C) 500 mg tablet 500 mg PO DAILY 09/09/21 [History Last Taken Unknown] cholecalciferol (vitamin D3) 25 mcg (1,000 unit) capsule 25 mcg PO DAILY 09/09/21 [History Last Taken Unknown] glucosamine sulfate 500 mg tablet 500 mg PO DAILY 09/09/21 [History Last Taken Unknown] omega-3 fatty acids 1,000 mg capsule 1,000 mg PO DAILY 09/09/21 [History Last Taken Unknown] potassium chloride 20 mEq tablet,extended release(part/cryst) 20 meq PO DAILY 09/09/21 [History Last Taken Unknown] vitamin B complex 1 tab PO DAILY 09/09/21 [History Last Taken Unknown] vitamins A,C,B-vkey-kpjcag 14,320 unit-226 mg-200 unit capsule 1 cap PO BID 09/09/21 [History Last Taken Unknown] polysaccharide iron complex mg 10/02/21 [History Last Taken Unknown] Allergy/AdvReac Type Severity Reaction Status Date / Time No Known Allergies Allergy Verified 10/02/21 12:30 Social History Smoking Status: Former smoker ROS ROS ED Constitutional Constitutional ED: Reports systems reviewed and no addt'l complaints, except as documented; Denies body ache(s), change in weight or chills Eyes Eyes: Denies acute decrease in peripheral vision, change in vision, double vision or loss of vision ENT ENT ED: Reports none; Denies ear pain, lip swelling, loss taste/smell, neck pain, otalgia or sore throat Cardiovascular Cardiovascular: Reports none; Denies abdominal pain, chest pain with activity, leg edema, lightheadedness, palpitations, rapid heart rate or syncope Respiratory/Chest Respiratory/Chest: Reports none; Denies change in mental status, dry cough, dyspnea, hemoptysis, shortness of breath at rest or shortness of breath with exertion Gastrointestinal Gastrointestinal: Reports none, abdominal pain, nausea and vomiting; Denies change in stool character, diarrhea, hematemesis, hematochezia, melena or rectal bleeding Genitourinary Genitourinary ED: Reports none; Denies abdominal discomfort, anuria, dysuria, genital pain or polyuria Musculoskeletal Musculoskeletal: Reports none; Denies arthralgias, back pain, difficulty walking, extremity pain, muscle weakness or myalgias Integumentary Reports none; Denies abscess or rash Neurologic Neurologic: Reports none; Denies abnormal gait, confusion, focal weakness, frequent falls, headache(s), loss of vision, numbness, paresthesias, radicular pain, vertigo or weakness Psychiatric Psychiatric: Reports systems reviewed and no addt'l complaints, except as documented and none; Denies behavioral changes, confusion, difficulty concentrating, hallucinations, suicidal ideation, tactile hallucinations or visual hallucinations Endocrine Endocrinology: Denies none, cold intolerance, excessive sweating, fatigue or heat intolerance Hematologic/Lymphatic Hematologic/Lymphatic: Reports none; Denies anemia, easy bleeding or easy bruising Allergic/Immunologic Allergic/Immunologic ED: Denies as per HPI, none, lip swelling, mouth swelling, throat swelling, tongue swelling or hives EXAM Physical Exam Const Vital Signs: 10/02/21 12:28 Temperature 98.2 F Temperature Source Temporal Pulse Rate 88 Respiratory Rate 18 Blood Pressure 184/101 H Blood Pressure Mean 128 Pulse Ox 98 Oxygen Delivery Method Room Air Positive well nourished and well developed General Appearance ED: well developed and NAD HEENT Reports TM's clear and moist mucous membranes normocephalic and atraumatic; Negative for trauma or tenderness Tympanic Membrane ED: Yes TM's clear Eyes PERRL and EOMs intact bilaterally General Eye ED: Negative for pale conjunctiva or scleral icterus Neck no lymphadenopathy, supple and no JVD General: Negative for tenderness Chest Wall inspection of chest normal and palpation of chest normal Chest: Negative for tenderness Resp normal respiratory effort and clear to auscultation bilaterally Effort and Inspection: Negative for respiratory distress or pain with movement Auscultation: Negative for rhonchi, wheezes or diminished lung sounds Cardio regular rate, regular rhythm, S1 normal heart sound, S2 normal heart sound and no murmurs Peripheral Pulses: pulses 2+ throughout GI normal to inspection, nondistended, normoactive bowel sounds, soft to palpation, non-tender, non-distended and no masses GI Narrative: Mild diffuse tenderness. There is no rebound, rigidity, or peritoneal signs. There is minimal stool in the colostomy bag. Palpation: tender Back/Spine no CVA tenderness and no thoracic nor lumbar tenderness Extremity normal to inspection General Extremety ED: Negative for edema General Extremity: Negative for edema Neuro oriented x3, CN's II-XII intact bilaterally, no sensory deficits noted and gait normal Sensorium / Orientation: awake, alert, oriented to person, oriented to place and oriented to time Motor Exam: strength 5/5 throughout and strength abnormal Psych mental status grossly normal Skin no rashes or lesions noted and no wounds MDM MDM MDM Narrative Medical decision making narrative: IV line established on arrival. Patient was given Zofran 4 mg IV. Lab work-up unremarkable. CT scan of the abdomen pelvis shows a dilated stomach with contrast in it and small bowel at upper limits of normal. During his stay in the department he still has not had any output from his ostomy. Case was discussed with general surgeon Dr. Laboy who will see patient in consultation. Patient was seen by general surgeon and surgeon agrees that this likely represents a bowel obstruction and recommended NG tube placement and admission to medicine with consult to them. Lab Data Attestation: I reviewed the patient's lab results. Labs: Laboratory Results - last 24 hr 10/02/21 10/02/21 10/02/21 13:05 13:05 13:05 WBC 6.7 RBC 3.99 L Hgb 11.4 L Hct 37.5 L MCV 94.0 MCH 28.6 MCHC 30.4 L RDW Std Deviation 54.0 H RDW Coeff of Wilian 15.8 H Plt Count 130 L MPV 11.2 Immature Gran % (Auto) 0.300 Neut % (Auto) 73.6 H Lymph % (Auto) 18.5 L [place] % (Auto) 7.2 Eos % (Auto) 0.2 Baso % (Auto) 0.2 Absolute Neuts (auto) 4.9 Absolute Lymphs (auto) 1.23 Nucleated RBC % 0 Sodium 138 Potassium 3.5 Chloride 103 Carbon Dioxide 30.0 Anion Gap 5 BUN 16 Creatinine 1.28 Estim Creat Clear Calc 45.27 Est GFR (MDRD) Af Amer 70 Est GFR (MDRD) Non-Af 58 L BUN/Creatinine Ratio 12.5 Glucose 131 H Lactic Acid 1.5 Calcium 9.5 Total Bilirubin 0.70 AST 22 ALT 26 Alkaline Phosphatase 108 Total Protein 8.3 H Albumin 3.9 Globulin 4.4 H Albumin/Globulin Ratio 0.9 Lipase 149 Urine Color Urine Clarity Urine pH Ur Specific [place] Urine Protein Urine Glucose (UA) Urine Ketones Urine Occult Blood Urine Nitrite Urine Bilirubin Urine Urobilinogen Ur Leukocyte Esterase Urine RBC Urine WBC Ur Squamous Epith Cells Urine Bacteria Urine Mucus 10/02/21 14:03 WBC RBC Hgb Hct MCV MCH MCHC RDW Std Deviation RDW Coeff of Wilian Plt Count MPV Immature Gran % (Auto) Neut % (Auto) Lymph % (Auto) [place] % (Auto) Eos % (Auto) Baso % (Auto) Absolute Neuts (auto) Absolute Lymphs (auto) Nucleated RBC % Sodium Potassium Chloride Carbon Dioxide Anion Gap BUN Creatinine Estim Creat Clear Calc Est GFR (MDRD) Af Amer Est GFR (MDRD) Non-Af BUN/Creatinine Ratio Glucose Lactic Acid Calcium Total Bilirubin AST ALT Alkaline Phosphatase Total Protein Albumin Globulin Albumin/Globulin Ratio Lipase Urine Color Yellow Urine Clarity Clear Urine pH 7.0 Ur Specific [place] 1.005 Urine Protein 30 H Urine Glucose (UA) Normal Urine Ketones Negative Urine Occult Blood Negative Urine Nitrite Negative Urine Bilirubin Negative Urine Urobilinogen Normal Ur Leukocyte Esterase Negative Urine RBC 0 SEEN Urine WBC 0 SEEN Ur Squamous Epith Cells 0 SEEN Urine Bacteria 0 SEEN Urine Mucus 0 SEEN Radiography Diagnostic Testing: Clinical Impression(s) from Imaging Studies Abdomen/Pelvis CT 10/02/21 12:47 IMPRESSION: A colostomy is seen in the anterior right lower quadrant. The small bowel dimension measures upper limits of normal. Electronically Signed: Raghavendra Soto MD at 15:11 EST , Service support , Discharge Plan Triage Chief Complaint: Abd Pain ED Provider: Song Villafana Dx/Rx/DC Orders Clinical Impression: Abdominal pain, Complete obstruction of small intestine Prescriptions: No Action vitamin B complex [B Complex-Vitamin B12] Tablet 1 tab PO DAILY RF: 0 cholecalciferol (vitamin D3) 25 mcg (1,000 unit) capsule 25 mcg PO DAILY RF: 0 ascorbate calcium (vitamin C) 500 mg tablet 500 mg PO DAILY RF: 0 PreserVision AREDS [id number] capsule 1 cap PO BID RF: 0 glucosamine sulfate [Glucosamine] 500 mg tablet 500 mg PO DAILY RF: 0 omega-3 fatty acids [Fish Oil Concentrate] 1,000 mg capsule 1,000 mg PO DAILY RF: 0 potassium chloride 20 mEq tablet,ER particles/crystals 20 meq PO DAILY RF: 0 multivitamin [Daily Multiple] 1 EACH tablet 1 ea PO DAILY RF: 0 amlodipine 5 MG tablet 5 mg PO DAILY RF: 0 losartan 100 MG tablet 100 mg PO DAILY RF: 0 aspirin 81 MG tablet,chewable 81 mg PO DAILY@0800 RF: 0 metoprolol succinate 50 MG tablet 50 mg PO DAILY Qty: 30 RF: 0 sertraline 50 MG tablet 50 mg PO DAILY Qty: 30 RF: 0 atorvastatin 20 MG tablet 20 mg PO QHS Qty: 30 RF: 0 polysaccharide iron complex 150 mg iron capsule RF: 0 Primary Care Provider: David Medellin Chi Referrals: David Medellin Chi, MD [Primary Care Provider] - Disposition Disposition: Acute Care Hospital [facility]
[2021-10-02] MEDS: 0.9% Normal Saline 1,000 ML 125 ML IV (13:07)
[2021-10-02] MEDS: Ondansetron 4 MG/2 ML Vial IV ×2 (13:08→22:17)
[2021-10-02 13:25] LABS: Absolute Lymphocyte Count 1.23 X10^3/uL (0.83-4.51); Absolute Neutrophil Count 4.9 X10^3/uL (2.0-7.7); Basophil# 0.01 X10^3/uL; Basophil% 0.2 % (0-1); Eosinophil# 0.01 X10^3/uL; Eosinophils% 0.2 % (0-5); Hematocrit 37.5 % (40-54); Hemoglobin 11.4 g/dL (13.0-16.5); Lymphocyte # 1.23 X10^3/ul (0.83-4.51); Lymphocyte % 18.5 % (19-41); Mean Corp Hgb Conc 30.4 g/dL (32-36); Mean Corpuscular Hgb 28.6 pg (27.0-32.0); Mean Platelet Vol. 11.2 fl (6.2-12.0); Monocyte# 0.48 X10^3/uL; Monocyte% 7.2 % (0-10); NRBC Flagged by Analyzer 0 % (0-5); Neutrophil % 73.6 % (47-70); Platelet Count 130 K/mm3 (150-450); RBC Distribution Width CV 15.8 % (11.6-14.6); Red Blood Count 3.99 M/mm3 (4.6-6.2); White Blood Count 6.7 K/mm3 (4.4-11.0)
[2021-10-02 13:39] LABS: ALB/GLOB Ratio 0.9 RATIO (0.9-2.4); AST(SGOT) 22 U/L (15-37); Alanine Aminotransfer ALT/SGPT 26 U/L (16-61); Albumin, Serum 3.9 g/dL (3.2-5.0); Alkaline Phosphatase 108 U/L (45-117); Anion Gap 5 (5-15); BUN 16 mg/dL (7-18); BUN/Creat Ratio 12.5 RATIO (10-20); Calcium,Total 9.5 mg/dL (8.5-10.1); Chloride 103 mmol/L (98-107); Creatinine, Serum 1.28 mg/dL (0.70-1.30); EST Glomerular Filtration Rate 58 mL/min (>60); Est Glom Filt Rate - Afr Amer 70 mL/min (>60); Estimated Creatinine Clearance 45.27 ml/min; Globulin 4.4 g/dL (2.2-4.2); Glucose 131 mg/dL (74-106); Lipase 149 U/L (73-393); Potassium 3.5 mmol/L (3.5-5.1); Protein, Total 8.3 g/dL (6.4-8.2); Sodium Level 138 mmol/L (136-145)
[2021-10-02 13:50] LABS: Lactic Acid 1.5 mmol/L (0.4-1.9)
[2021-10-02 14:19] LABS: Bacteria 0 SEEN /hpf (None Seen); Mucous, Urine 0 SEEN /hpf (<or=2+); Red Blood Cells-Urine 0 SEEN /hpf (0-5); Squamous Epithelial Cells - UA 0 SEEN /hpf (0-5); White Blood Cells 0 SEEN /hpf (0-5)
[2021-10-02 14:20] LABS: Color, Urine Yellow (Yellow); Glucose, Dipstick Normal (Normal); Ketone-Dipstick Negative (Negative); Leukocyte Esterase-Dipstick Negative /ul (Negative); Nitrite-Dipstick Negative (Negative); Occult Blood-Urine Negative /ul (Negative); Protein-Dipstick 30 mg/dl (Negative); Specific Gravity, Urine 1.005 (1.002-1.030); Urine Bilirubin Dipstick Negative (Negative); Urine Clarity Clear (Clear); Urine Urobilinogen Normal (Normal)
--- NOTE | 2021-10-02 16:34 | RAD_ITS ---
EXAM: XR ABDOMEN, 1 VIEW CLINICAL INDICATION: ng TECHNIQUE: Frontal supine view of the abdomen/pelvis. This report was created using [employer] report generation technology. COMPARISON: None. FINDINGS: LOWER THORAX: No acute pathology. GASTROINTESTINAL TRACT: Unremarkable. Non-obstructive. No bowel or stomach distention. ORGANS: There are multiple metallic clips in the right upper quadrant. This is consistent for a cholecystectomy. No organomegaly. No abnormal calcifications. BONES/JOINTS: Degenerative findings in the thoracic spine. SOFT TISSUES: No acute pathology. TUBES, LINES AND DEVICES: There is a feeding tube/ nasogastric tube noted. The tip is in the region of the stomach. RAD/Abdomen Single View (Portable) IMPRESSION: There is a feeding tube/ nasogastric tube noted. The tip is in the region of the stomach. Electronically Signed: Andrew Franklin MD at 16:58 EST , Service support ,
--- NOTE | 2021-10-02 16:35 | PCM.HP.STD ---
HPI - General General Date of Admission: 10/02/21 HPI Narrative BRO SANTILLAN, is a 81 M with a complex medical history inclusive of prior CVA, coronary artery disease status post PCI's, morbid obesity, probable mild dysplastic syndrome, and ulcerative colitis status post total abdominal colectomy, who presents complaints of abdominal pain nausea, vomiting, weakness and minimal output from his right lower quadrant ileostomy since last evening. He and his state that symptoms began at approximately 8 PM, but he really was not feeling well during dinner. They deny any unusual foods were eaten as part of dinner, but states that he did have some fruit (including apples with the skin still on) earlier in the day. He confirms that he has been feeling well up until this point. His intake through the ER is remarkable for some hypertension, normal white count but mild left shift, and CT imaging that showed air-fluid levels and gastric distention concerning for possible small bowel obstruction. Patient is status post total abdominal colectomy at the [facility] 5 years ago. This was via a midline laparotomy incision. Additionally, he has a history of a cholecystectomy and a open left inguinal hernia repair with mesh. He denies any issues following his colectomy procedure and states that he empties his ostomy appliance 3-4 times a day. Subsequent to the procedure he has not required any hospitalizations for GI?related issues. [facility] Medical History (Updated 10/02/21 @ 16:[address] Mehul Laboy MD) Chronic GI bleeding Ulcerative colitis Home Medications amlodipine 5 mg PO DAILY 07/20/16 [History Last Taken 07/20/16] losartan 100 mg PO DAILY 07/20/16 [History Last Taken 07/20/16] multivitamin [Daily Multiple] 1 ea PO DAILY 07/20/16 [History Last Taken 07/19/16] aspirin 81 mg PO DAILY@0800 tab.chew 07/21/16 [Rx Last Taken Unknown] atorvastatin 20 mg PO QHS #30 tablet 07/21/16 [Rx Last Taken Unknown] metoprolol succinate 50 mg PO DAILY #30 tablet 07/21/16 [Rx Last Taken Unknown] sertraline 50 mg PO DAILY #30 tablet 07/21/16 [Rx Last Taken Unknown] ascorbate calcium (vitamin C) 500 mg tablet 500 mg PO DAILY 09/09/21 [History Last Taken Unknown] cholecalciferol (vitamin D3) 25 mcg (1,000 unit) capsule 25 mcg PO DAILY 09/09/21 [History Last Taken Unknown] glucosamine sulfate 500 mg tablet 500 mg PO DAILY 09/09/21 [History Last Taken Unknown] omega-3 fatty acids 1,000 mg capsule 1,000 mg PO DAILY 09/09/21 [History Last Taken Unknown] potassium chloride 20 mEq tablet,extended release(part/cryst) 20 meq PO DAILY 09/09/21 [History Last Taken Unknown] vitamin B complex 1 tab PO DAILY 09/09/21 [History Last Taken Unknown] vitamins A,C,W-atqr-kzoelh 14,320 unit-226 mg-200 unit capsule 1 cap PO BID 09/09/21 [History Last Taken Unknown] polysaccharide iron complex mg 10/02/21 [History Last Taken Unknown] Allergy/AdvReac Type Severity Reaction Status Date / Time No Known Allergies Allergy Verified 10/02/21 12:30 Social History Smoking Status: Former smoker Vital Signs Vital Signs Vital Signs: 10/02/21 12:28 Temperature 98.2 F Temperature Source Temporal Pulse Rate 88 Respiratory Rate 18 Blood Pressure 184/101 H Blood Pressure Mean 128 Pulse Ox 98 Oxygen Delivery Method Room Air Weight Weight: 210 lb Body Mass Index (BMI) 31.9 Physical Exam Const alert and oriented x3 Constitutional Narrative: Mild distress due to severe nausea General Appearance: cooperative Resp normal respiratory effort GI GI Narrative: Mild abdominal distention, midline laparotomy scar now well-healed. Patient also has evidence of port site incisions from prior cholecystectomy and a left groin incision consistent with a prior inguinal hernia. In the right lower quadrant patient has a ileostomy that is bright red and well perfused. There is some gas and fecal material in the ostomy appliance. Patient has significant tenderness with palpation along the infraumbilical extent of his midline laparotomy incision. He is, otherwise, generally soft. Results Lab / Micro Data Result Diagrams: 10/02/21 13:05 10/02/21 13:05 Labs: Laboratory Results - last 24 hr 10/02/21 13:05: WBC 6.7, RBC 3.99 L, Hgb 11.4 L, Hct 37.5 L, MCV 94.0, MCH 28.6, MCHC 30.4 L, RDW Std Deviation 54.0 H, RDW Coeff of Wilian 15.8 H, Plt Count 130 L, MPV 11.2, Immature Gran % (Auto) 0.300, Neut % (Auto) 73.6 H, Lymph % (Auto) 18.5 L, [place] % (Auto) 7.2, Eos % (Auto) 0.2, Baso % (Auto) 0.2, Absolute Neuts (auto) 4.9, Absolute Lymphs (auto) 1.23, Nucleated RBC % 0 10/02/21 13:05: Sodium 138, Potassium 3.5, Chloride 103, Carbon Dioxide 30.0, Anion Gap 5, BUN 16, Creatinine 1.28, Estim Creat Clear Calc 45.27, Est GFR (MDRD) Af Amer 70, Est GFR (MDRD) Non-Af 58 L, BUN/Creatinine Ratio 12.5, Glucose 131 H, Calcium 9.5, Total Bilirubin 0.70, AST 22, ALT 26, Alkaline Phosphatase 108, Total Protein 8.3 H, Albumin 3.9, Globulin 4.4 H, Albumin/Globulin Ratio 0.9, Lipase 149 10/02/21 13:05: Lactic Acid 1.5 10/02/21 14:03: Urine Color Yellow, Urine Clarity Clear, Urine pH 7.0, Ur Specific [place] 1.005, Urine Protein 30 H, Urine Glucose (UA) Normal, Urine Ketones Negative, Urine Occult Blood Negative, Urine Nitrite Negative, Urine Bilirubin Negative, Urine Urobilinogen Normal, Ur Leukocyte Esterase Negative, Urine RBC 0 SEEN, Urine WBC 0 SEEN, Ur Squamous Epith Cells 0 SEEN, Urine Bacteria 0 SEEN, Urine Mucus 0 SEEN Radiology Impression Abdomen/Pelvis CT 10/02/21 12:47 IMPRESSION: A colostomy is seen in the anterior right lower quadrant. The small bowel dimension measures upper limits of normal. Electronically Signed: Raghavendra Soto MD at 15:11 EST , Service support , Assessment & Plan Assessment/Plan (1) Small bowel obstruction: PLAN: This is a 81-year male with past history of ulcerative colitis status post total abdominal colectomy who presents with less than 12 hours of abdominal discomfort, nausea, vomiting, weakness and decreased ileostomy output. Laboratories were relatively unremarkable aside from a mild left shift. Patient had CT imaging where radiology noted that the small bowel was at the upper limits of normal and confirms some gastric distention. In my independent review of the imaging, there appears to be a significant length of decompressed small bowel leading into the patient's right lower quadrant ileostomy and somewhere mid?jejunum there appears to be fecalization for a short length?potentially indicating dehydrated foodstuff. Patient additionally has a small, goyal?type incisional hernia without evidence of obstruction. On exam, patient is quite uncomfortable from his nausea and repeatedly asked for a Tums. He did have a bout of emesis while I was in the exam room, and therefore a nasogastric tube was ordered stat. Thereafter, he did have some improvement in his nausea. I also placed a 16 [place] red Ray catheter into the patient's ileostomy without resistance after digitizing his ostomy and finding it open at the fascia. Given that the patient is still passing gas through his ileostomy, the stress presents a partial small bowel obstruction. I hope to see the patient through a conservative course with nasogastric tube decompression followed by small bowel series tomorrow. Plan has been communicated in detail both the patient and his spouse. ?Strict n.p.o. ?Nasogastric tube to low intermittent wall suction once confirmed by KUB. ?Strict I's and O's. ?Keep head of bed elevated at least 45 degrees ?Recommend IV Protonix given the patient's history of GERD and presence of a NG-tube Charges/Coding Visit Charges Inpatient E&M: 75224 Init Hosp L2
[2021-10-02 16:57] VITALS: BP 173/96; PULSE 90; PULSE 92; RESP 18; TEMP 36.9; O2SAT 94; O2SAT 95
--- NOTE | 2021-10-02 17:20 | HP.PCM.HOS_ITS ---
HPI - General General Date of Admission: 10/02/21 Date of Service: 10/02/21 Chief Complaint: Nausea vomiting abdominal pain HPI Narrative BRO SANTILLAN, is a 81 M who presents with history of ulcerative colitis diagnosed about 6 years ago status post total colectomy sparing rectum with end ileostomy came to ER nausea, vomiting, abdominal pain that started yesterday evening on 10/01/2021. Patient standing at home and after dinner around 8 PM after he had dinner with skin apple seeds TOO. After that he felt nausea and vomited 4 times and abdominal pain got better but he still has discomfort. In ED, CT showed air-fluid level and gastric distention concerning for possible small bowel obstruction. Patient used to see Dr. Pimentel who referred to [facility] for further evaluation of ulcerative colitis surgery. During that. 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 Lora goncalves also has intermittent slippery liquid reddish stool through anal canal. [facility] Medical History Chronic GI bleeding Ulcerative colitis Home Medications amlodipine 5 mg PO DAILY 07/20/16 [History Last Taken 07/20/16] losartan 100 mg PO DAILY 07/20/16 [History Last Taken 07/20/16] multivitamin [Daily Multiple] 1 ea PO DAILY 07/20/16 [History Last Taken 07/19/16] aspirin 81 mg PO DAILY@0800 tab.chew 07/21/16 [Rx Last Taken Unknown] atorvastatin 20 mg PO QHS #30 tablet 07/21/16 [Rx Last Taken Unknown] metoprolol succinate 50 mg PO DAILY #30 tablet 07/21/16 [Rx Last Taken Unknown] sertraline 50 mg PO DAILY #30 tablet 07/21/16 [Rx Last Taken Unknown] ascorbate calcium (vitamin C) 500 mg tablet 500 mg PO DAILY 09/09/21 [History Last Taken Unknown] cholecalciferol (vitamin D3) 25 mcg (1,000 unit) capsule 25 mcg PO DAILY 09/09/21 [History Last Taken Unknown] glucosamine sulfate 500 mg tablet 500 mg PO DAILY 09/09/21 [History Last Taken Unknown] omega-3 fatty acids 1,000 mg capsule 1,000 mg PO DAILY 09/09/21 [History Last Taken Unknown] potassium chloride 20 mEq tablet,extended release(part/cryst) 20 meq PO DAILY 09/09/21 [History Last Taken Unknown] vitamin B complex 1 tab PO DAILY 09/09/21 [History Last Taken Unknown] vitamins A,C,A-ohno-yvkfxk 14,320 unit-226 mg-200 unit capsule 1 cap PO BID 09/09/21 [History Last Taken Unknown] polysaccharide iron complex mg 10/02/21 [History Last Taken Unknown] Allergy/AdvReac Type Severity Reaction Status Date / Time No Known Allergies Allergy Verified 10/02/21 12:30 Social History Smoking Status: Former smoker ROS ROS Narrative Constitutional: Reports fatigue and weakness. No fever HEENT: Reports systems reviewed and no addt'l complaints, except as documented Respiratory/Chest: Denies chest pain, shortness of breath at rest or with exertion Gastrointestinal: Denies hematemesis. Rest as mentioned in HPI Genitourinary: Denies burning urination or new urinary tract symptoms Musculoskeletal: Denies joint pain and limited range of motion Neurologic: Denies seizure-like activity skin: No ulcer. No rash Endocrinology: Reports systems reviewed and no addt'l complaints, except as documented Hematologic/Lymphatic: As mentioned in HPI reports systems reviewed and no addt'l complaints, except as documented Rest 12 ROS are negative except as mentioned in HPI Vital Signs Vital Signs Vital Signs: 10/02/21 12:28 10/02/21 16:57 Temperature 98.2 F 98.5 F Temperature Source Temporal Oral Pulse Rate 88 92 Respiratory Rate 18 18 Blood Pressure 184/101 H 173/96 H Blood Pressure Mean 128 121 Pulse Ox 98 95 Oxygen Delivery Method Room Air Room Air Weight Weight: 210 lb Body Mass Index (BMI) 31.9 Physical Exam Narrative General: Alert, Oriented x3, Cooperative HEENT: Atraumatic, PERRLA, EOMI, Normocephalic Oral: No Gingival or Mucosal Lesions/ Ulcerations Neck: Supple, No JVD, Negative Carotid Bruits Lungs: Air entry diminished in bilateral lung bases. No crepitation/rhonchi Cardiovascular: Regular rate, Regular Rhythm, Normal S1, Normal S2, No murmurs Abdomen: Mild tenderness diffuse. Bowel sound hyperactive. Small blood with gas in colostomy bag. Nondistended. NG tube inserted. Patient has rubber catheter in ileostomy with some blood. : No renal angle tenderness. No suprapubic tenderness. Extremities: No edema, Capillary Refill Less than 3 Seconds Skin: No rashes, No breakdown Musculoskeletal: No Tenderness to Palpation of Joints or Extremities Neurological: Cranial nerves II-XII grossly intact, DTR 2+/4 and Symmetrical, Neuro grossly intact Psych/Mental Status: Normal Affect, Appropriate. Results Lab / Micro Data Result Diagrams: 10/02/21 13:05 10/02/21 13:05 Labs: Laboratory Results - last 24 hr 10/02/21 13:05: WBC 6.7, RBC 3.99 L, Hgb 11.4 L, Hct 37.5 L, MCV 94.0, MCH 28.6, MCHC 30.4 L, RDW Std Deviation 54.0 H, RDW Coeff of Wilian 15.8 H, Plt Count 130 L, MPV 11.2, Immature Gran % (Auto) 0.300, Neut % (Auto) 73.6 H, Lymph % (Auto) 18.5 L, [place] % (Auto) 7.2, Eos % (Auto) 0.2, Baso % (Auto) 0.2, Absolute Neuts (auto) 4.9, Absolute Lymphs (auto) 1.23, Nucleated RBC % 0 10/02/21 13:05: Sodium 138, Potassium 3.5, Chloride 103, Carbon Dioxide 30.0, Anion Gap 5, BUN 16, Creatinine 1.28, Estim Creat Clear Calc 45.27, Est GFR (MDRD) Af Amer 70, Est GFR (MDRD) Non-Af 58 L, BUN/Creatinine Ratio 12.5, Glucose 131 H, Calcium 9.5, Total Bilirubin 0.70, AST 22, ALT 26, Alkaline Phosphatase 108, Total Protein 8.3 H, Albumin 3.9, Globulin 4.4 H, Albumin/Globulin Ratio 0.9, Lipase 149 10/02/21 13:05: Lactic Acid 1.5 10/02/21 14:03: Urine Color Yellow, Urine Clarity Clear, Urine pH 7.0, Ur Specific [place] 1.005, Urine Protein 30 H, Urine Glucose (UA) Normal, Urine Ketones Negative, Urine Occult Blood Negative, Urine Nitrite Negative, Urine Bilirubin Negative, Urine Urobilinogen Normal, Ur Leukocyte Esterase Negative, Urine RBC 0 SEEN, Urine WBC 0 SEEN, Ur Squamous Epith Cells 0 SEEN, Urine Bacteria 0 SEEN, Urine Mucus 0 SEEN Micro: Microbiology 10/02/21 16:40 Nasal Secretion SARS-CoV-2 Antigen (Rapid) - Final Radiology Impression Abdomen/Pelvis CT 10/02/21 12:47 IMPRESSION: A colostomy is seen in the anterior right lower quadrant. The small bowel dimension measures upper limits of normal. Electronically Signed: Raghavendra Soto MD at 15:11 EST , Service support , KUB X-Ray 10/02/21 16:34 IMPRESSION: There is a feeding tube/ nasogastric tube noted. The tip is in the region of the stomach. Electronically Signed: Andrew Franklin MD at 16:58 EST , Service support , Assessment & Plan Assessment/Plan (1) Small bowel obstruction: PLAN: 1. 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 Patient seen by surgeon Dr. Laboy. He had 16 [place] red Ray catheter digitalized into ileostomy without resistance. Small amount of blood. 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 Jang on 09/09/2021. Had EGD inserted in as much as you wish shows clip in the region of his stomach. Keep n.p.o. IV fluid Ringer lactate 100 mL/h. Lactic acid 1.5. Serum magnesium pending. K3.5. UA negative except protein 30 2. Ulcerative colitis: Follows Dr. Jang. 3. GERD: IV Protonix. 4. Coronary atherosclerosis, CAD status post stent: Hold antiplatelet and cardiac medications since n.p.o. 5. MDS with mild thrombocytopenia, mild normocytic normochromic anemia: H&H 11.4/37%. Platelet count 230,000. 6. Hypertension: BP is elevated. IV hydralazine 5 mg for systolic blood pressure more than 160 MAG 7. History of a stroke with minimal residual expressive aphasia: Hold baby aspirin for now. VTE prophylaxis: Heparin 5000 subcutaneous twice daily. Discontinue if platelet count drops less than 50,000 or hemoglobin less than 8 g% Living will/advanced directive/end of life care: Patient had living will or advanced directive but has . 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 Charges/Coding Visit Charges Inpatient E&M: 59896 Init Hosp L3 Procedures Hospitalists Procedures: 14734 Advncd Care Plan 30 Min
[2021-10-02 18:00] VITALS: BP 174/102; PULSE 92; RESP 18; TEMP 36.8; O2SAT 95
[2021-10-02 18:01] VITALS: BMI 31.9
[2021-10-02 18:03] LABS: Magnesium 2.2 mg/dL (1.6-2.6)
[2021-10-02] MEDS: Lactated Ringers 1,000 ML 100 ML IV (18:38)
[2021-10-02] MEDS: 0.9% Saline Lock 10 ML Syringe IV (18:38)
[2021-10-02 18:59] VITALS: O2SAT 95
[2021-10-02] MEDS: Heparin Injection (Vial) 5,000 UNIT/ML VIAL 5000 UNIT SC (21:32)
[2021-10-02 21:33] VITALS: BP 186/94; PULSE 91; RESP 18; TEMP 36.7; O2SAT 95
[2021-10-02] MEDS: Enalaprilat 1.25 MG/ML Vial 2.5 MG IV (23:26)
[2021-10-03] VITALS (8 sets, daily range): BP systolic 131–192; BP diastolic 72–99; PULSE 66–87; RESP 16–20; TEMP 36.8–37.3; O2SAT 93–98
[2021-10-03] MEDS: Enalaprilat 1.25 MG/ML Vial 2.5 MG IV (05:31)
[2021-10-03] MEDS: 0.9% Saline Lock 10 ML Syringe IV (05:32)
[2021-10-03 06:16] LABS: Absolute Lymphocyte Count 1.24 X10^3/uL (0.83-4.51); Eosinophil# 0.02 X10^3/uL; Eosinophils% 0.3 % (0-5); Hematocrit 35.7 % (40-54); Hemoglobin 10.9 g/dL (13.0-16.5); Lymphocyte # 1.24 X10^3/ul (0.83-4.51); Lymphocyte % 21.5 % (19-41); Mean Corp Hgb Conc 30.5 g/dL (32-36); Mean Corpuscular Hgb 28.6 pg (27.0-32.0); Mean Corpuscular Volume 93.7 fL (80-94); Mean Platelet Vol. 10.8 fl (6.2-12.0); Monocyte# 0.47 X10^3/uL; Monocyte% 8.1 % (0-10); NRBC Flagged by Analyzer 0 % (0-5); Neutrophil # 4.03 X10^3/uL (2.7-7.7); Neutrophil % 69.8 % (47-70); Platelet Count 104 K/mm3 (150-450); RBC Distribution Width CV 15.9 % (11.6-14.6); RBC Distribution Width SD 54.7 fl (35.1-43.9); Red Blood Count 3.81 M/mm3 (4.6-6.2); White Blood Count 5.8 K/mm3 (4.4-11.0)
[2021-10-03 06:42] LABS: Anion Gap 4 (5-15); BUN 14 mg/dL (7-18); BUN/Creat Ratio 15.6 RATIO (10-20); Calcium,Total 8.7 mg/dL (8.5-10.1); Chloride 107 mmol/L (98-107); EST Glomerular Filtration Rate 87 mL/min (>60); Est Glom Filt Rate - Afr Amer 105 mL/min (>60); Estimated Creatinine Clearance 64.39 ml/min; Glucose 131 mg/dL (74-106); Potassium 3.3 mmol/L (3.5-5.1); Sodium Level 141 mmol/L (136-145)
--- NOTE | 2021-10-03 09:02 | RAD_ITS ---
CLINICAL HISTORY: Male, 81 years old. Partial small bowel obstruction PROCEDURE: Small Bowel Series TECHNIQUE: Small bowel series protocol Findings: The flexible nanny view of the abdomen demonstrate a nonspecific bowel gas pattern. Small amount of oral contrast appears to be located within the proximal colon. Degenerative vertebral changes. Surgical clips in the right upper quadrant. Oral contrast partially outlines the gastric lumen. No significant small bowel dilatation. It is difficult to determine if the oral contrast given has reached the colon due to the residual colonic contrast prior to the examination. No radiographic evidence of bowel obstruction is appreciated. RAD/Small Bowel Series Only IMPRESSION: Limited study as noted. No sign of bowel obstruction. Electronically Signed: Min Kerr DO at 14:40 EST Tel [phone], Service support ,
--- NOTE | 2021-10-03 09:02 | NURSING ---
UPON ASSESSING PT'S NGT, PT STATES TOP OF MOUTH IS SORE. THIS NURSE FOUND THAT THE TUBE WAS KINKED IN THE BACK OF THE MOUTH. PHYSICAL THERAPY MANAGER STATED THERE WAS NO NG OUTPUT FOR HER SHIFT. DR JAFFE MADE AWARE. ORDERED TO REMOVE THE TUBE & COMPLETE A SMALL BOWEL SERIES WITH PT DRINKING ORAL CONTRAST.
--- NOTE | 2021-10-03 10:07 | PN.HOSP_ITS ---
Subjective Subjective Patient had small bowel x-ray therefore seen and examined in the afternoon Ileostomy bag is full of liquid stool greenish color bilious in nature. Rubber tubing bag. NG tube was coiled up in oropharynx.. Passing gas/flatus. No nausea or vomiting. Objective Data Objective Data Vital Signs: Vital Signs Temp Pulse Resp BP Pulse Ox 98.2 F 77 18 162/95 H 93 10/03/21 08:31 10/03/21 08:31 10/03/21 08:31 10/03/21 08:31 10/03/21 08:31 Oxygen Delivery Method Room Air Weight: 209 lb 7.026 oz Body Mass Index (BMI) 31.9 Intake & Output: Intake and Output for Last 24 Hours 10/01/21 10/02/21 10/03/21 23:59 23:59 23:59 Intake Total 1060 / 1060 1060 / 1060 Output Total 300 / 300 625 / 625 Balance 760 / 760 435 / 435 Lab / Micro Data Result Diagrams: 10/03/21 06:04 10/03/21 06:04 Labs: Laboratory Results - last 24 hr 10/02/21 13:05: WBC 6.7, RBC 3.99 L, Hgb 11.4 L, Hct 37.5 L, MCV 94.0, MCH 28.6, MCHC 30.4 L, RDW Std Deviation 54.0 H, RDW Coeff of Wilian 15.8 H, Plt Count 130 L, MPV 11.2, Immature Gran % (Auto) 0.300, Neut % (Auto) 73.6 H, Lymph % (Auto) 18.5 L, [place] % (Auto) 7.2, Eos % (Auto) 0.2, Baso % (Auto) 0.2, Absolute Neuts (auto) 4.9, Absolute Lymphs (auto) 1.23, Nucleated RBC % 0 10/02/21 13:05: Sodium 138, Potassium 3.5, Chloride 103, Carbon Dioxide 30.0, Anion Gap 5, BUN 16, Creatinine 1.28, Estim Creat Clear Calc 45.27, Est GFR (MDRD) Af Amer 70, Est GFR (MDRD) Non-Af 58 L, BUN/Creatinine Ratio 12.5, Glucose 131 H, Calcium 9.5, Total Bilirubin 0.70, AST 22, ALT 26, Alkaline Phosphatase 108, Total Protein 8.3 H, Albumin 3.9, Globulin 4.4 H, Albumin/Globulin Ratio 0.9, Lipase 149 10/02/21 13:05: Lactic Acid 1.5 10/02/21 13:05: Magnesium 2.2 10/02/21 14:03: Urine Color Yellow, Urine Clarity Clear, Urine pH 7.0, Ur Specific [place] 1.005, Urine Protein 30 H, Urine Glucose (UA) Normal, Urine Ketones Negative, Urine Occult Blood Negative, Urine Nitrite Negative, Urine Bilirubin Negative, Urine Urobilinogen Normal, Ur Leukocyte Esterase Negative, Urine RBC 0 SEEN, Urine WBC 0 SEEN, Ur Squamous Epith Cells 0 SEEN, Urine Bacteria 0 SEEN, Urine Mucus 0 SEEN 10/03/21 06:04: WBC 5.8, RBC 3.81 L, Hgb 10.9 L, Hct 35.7 L, MCV 93.7, MCH 28.6, MCHC 30.5 L, RDW Std Deviation 54.7 H, RDW Coeff of Wilian 15.9 H, Plt Count 104 L, MPV 10.8, Immature Gran % (Auto) 0.300, Neut % (Auto) 69.8, Lymph % (Auto) 21.5, [place] % (Auto) 8.1, Eos % (Auto) 0.3, Baso % (Auto) 0.0, Absolute Neuts (auto) 4.0, Absolute Lymphs (auto) 1.24, Nucleated RBC % 0 10/03/21 06:04: Sodium 141, Potassium 3.3 L, Chloride 107, Carbon Dioxide 30.0, Anion Gap 4 L, BUN 14, Creatinine 0.90, Estim Creat Clear Calc 64.39, Est GFR (MDRD) Af Amer 105, Est GFR (MDRD) Non-Af 87, BUN/Creatinine Ratio 15.6, Glucose 131 H, Calcium 8.7, Phosphorus 3.0 Micro: Microbiology 10/02/21 16:40 Nasal Secretion SARS-CoV-2 Antigen (Rapid) - Final Radiography Diagnostic Testing: Radiology Impression Abdomen/Pelvis CT 10/02/21 12:47 IMPRESSION: A colostomy is seen in the anterior right lower quadrant. The small bowel dimension measures upper limits of normal. Electronically Signed: Raghavendra Soto MD at 15:11 EST , Service support , KUB X-Ray 10/02/21 16:34 IMPRESSION: There is a feeding tube/ nasogastric tube noted. The tip is in the region of the stomach. Electronically Signed: Andrew Franklin MD at 16:58 EST , Service support , Physical Exam Narrative General: Alert, Oriented x3, Cooperative HEENT: Atraumatic, PERRLA, EOMI, Normocephalic Oral: No Gingival or Mucosal Lesions/ Ulcerations Neck: Supple, No JVD, Negative Carotid Bruits Lungs: Air entry diminished in bilateral lung bases. No crepitation/rhonchi Cardiovascular: Regular rate, Regular Rhythm, Normal S1, Normal S2, No murmurs Abdomen: Soft, bowel sounds high-pitched, slow. Liquid bilious/green discolored stool in ileostomy bag. Nondistended. No tenderness or minimal tenderness deep palpation. Rubber tube in ileostomy bag. : No renal angle tenderness. No suprapubic tenderness. Extremities: No edema, Capillary Refill Less than 3 Seconds Skin: No rashes, No breakdown Musculoskeletal: No Tenderness to Palpation of Joints or Extremities Neurological: Cranial nerves II-XII grossly intact, DTR 2+/4 and Symmetrical, Neuro grossly intact Psych/Mental Status: Normal Affect, Appropriate. Assessment & Plan Assessment/Plan (1) Small bowel obstruction: PLAN: 1. 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 Patient seen by surgeon Dr. Laboy. He had 16 [place] red Ray catheter digitalized into ileostomy without resistance. Small amount of blood. 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 [place] inserted in as much as you wish shows clip in the region of his stomach. Keep n.p.o. IV fluid Ringer lactate 100 mL/h. Lactic acid 1.5. Serum magnesium pending. K3.5. UA negative except protein 30 10/03: NG tube was found in oropharynx therefore removed. No nausea or vomit ing. Patient had a small bowel follow-through x-ray and found no signs of bowel obstruction. Discussed with the surgeon. Started on clear liquid diet. Plan of management discussed with the patient and his in the room. Decrease IV fluid Ringer lactate to 61/h. Mild hypokalemia and phosphate on lower limit of upper limit normal, potassium and phosphate are getting replaced. 2. Ulcerative colitis: Follows Dr. Jang. 3. GERD: IV Protonix. 4. Coronary atherosclerosis, CAD status post stent: Hold antiplatelet and cardiac medications since n.p.o. 5. MDS with mild thrombocytopenia, mild normocytic normochromic anemia: H&H 11.4/37%. Platelet count 230,000. 6. Hypertension: BP is elevated. IV hydralazine 5 mg for systolic blood pressure more than 160 MAG 7. History of a stroke with minimal residual expressive aphasia: Hold baby aspirin for now. VTE prophylaxis: Heparin 5000 subcutaneous twice daily. Discontinue if platelet count drops less than 50,000 or hemoglobin less than 8 g% Living will/advanced directive/end of life care: Patient had living will or advanced directive but has . 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 Clinical Impression(s) from Imaging Studies Abdomen/Pelvis CT 10/02/21 12:47 IMPRESSION: A colostomy is seen in the anterior right lower quadrant. The small bowel dimension measures upper limits of normal. KUB X-Ray 10/02/21 16:34 IMPRESSION: There is a feeding tube/ nasogastric tube noted. The tip is in the region of the stomach. Electronically Signed: Andrew Franklin MD at 16:58 EST , Service support , Small Bowel X-Ray 10/03/21 09:02 IMPRESSION: Limited study as noted. No sign of bowel obstruction. Charges/Coding Visit Charges Inpatient E&M: 52207 Subs Hosp L2
--- NOTE | 2021-10-03 10:29 | PN.SURG_ITS ---
Subjective Subjective Patient seen and examined during AM rounds. He is found resting in bed without acute distress. He states that he is doing better this morning. He overnight experienced some passage of gas and liquid into his ostomy appliance. He estimates that it was approximately an ounce of dark brown liquid that came out. He also denies any nausea this morning. However, according to nursing and patient now complained of some pain in the roof of his mouth and was found to have coiling of his nasogastric tube at that location. They state that they received overnight handoff that the patient had no output from his nasogastric tube and wonder when the tube became dislodged. Objective Data Objective Data Vital Signs: Vital Signs Temp Pulse Resp BP Pulse Ox 98.2 F 77 18 162/95 H 93 10/03/21 08:31 10/03/21 08:31 10/03/21 08:31 10/03/21 08:31 10/03/21 08:31 Oxygen Delivery Method Room Air Weight: 209 lb 7.026 oz Body Mass Index (BMI) 31.9 Intake & Output: Intake and Output for Last 24 Hours 10/01/21 10/02/21 10/03/21 23:59 23:59 23:59 Intake Total 1060 / 1060 1060 / 1060 Output Total 300 / 300 625 / 625 Balance 760 / 760 435 / 435 Lab / Micro Data Result Diagrams: 10/03/21 06:04 10/03/21 06:04 Labs: Laboratory Results - last 24 hr 10/02/21 13:05: WBC 6.7, RBC 3.99 L, Hgb 11.4 L, Hct 37.5 L, MCV 94.0, MCH 28.6, MCHC 30.4 L, RDW Std Deviation 54.0 H, RDW Coeff of Wilian 15.8 H, Plt Count 130 L, MPV 11.2, Immature Gran % (Auto) 0.300, Neut % (Auto) 73.6 H, Lymph % (Auto) 18.5 L, [place] % (Auto) 7.2, Eos % (Auto) 0.2, Baso % (Auto) 0.2, Absolute Neuts (auto) 4.9, Absolute Lymphs (auto) 1.23, Nucleated RBC % 0 10/02/21 13:05: Sodium 138, Potassium 3.5, Chloride 103, Carbon Dioxide 30.0, A nion Gap 5, BUN 16, Creatinine 1.28, Estim Creat Clear Calc 45.27, Est GFR (MDRD) Af Amer 70, Est GFR (MDRD) Non-Af 58 L, BUN/Creatinine Ratio 12.5, Glucose 131 H, Calcium 9.5, Total Bilirubin 0.70, AST 22, ALT 26, Alkaline Phosphatase 108, Total Protein 8.3 H, Albumin 3.9, Globulin 4.4 H, Albumin/Globulin Ratio 0.9, Lipase 149 10/02/21 13:05: Lactic Acid 1.5 10/02/21 13:05: Magnesium 2.2 10/02/21 14:03: Urine Color Yellow, Urine Clarity Clear, Urine pH 7.0, Ur Specific [place] 1.005, Urine Protein 30 H, Urine Glucose (UA) Normal, Urine Ketones Negative, Urine Occult Blood Negative, Urine Nitrite Negative, Urine Bilirubin Negative, Urine Urobilinogen Normal, Ur Leukocyte Esterase Negative, Urine RBC 0 SEEN, Urine WBC 0 SEEN, Ur Squamous Epith Cells 0 SEEN, Urine Bacteria 0 SEEN, Urine Mucus 0 SEEN 10/03/21 06:04: WBC 5.8, RBC 3.81 L, Hgb 10.9 L, Hct 35.7 L, MCV 93.7, MCH 28.6, MCHC 30.5 L, RDW Std Deviation 54.7 H, RDW Coeff of Wilian 15.9 H, Plt Count 104 L, MPV 10.8, Immature Gran % (Auto) 0.300, Neut % (Auto) 69.8, Lymph % (Auto) 21.5, [place] % (Auto) 8.1, Eos % (Auto) 0.3, Baso % (Auto) 0.0, Absolute Neuts (auto) 4. 0, Absolute Lymphs (auto) 1.24, Nucleated RBC % 0 10/03/21 06:04: Sodium 141, Potassium 3.3 L, Chloride 107, Carbon Dioxide 30.0, Anion Gap 4 L, BUN 14, Creatinine 0.90, Estim Creat Clear Calc 64.39, Est GFR (MDRD) Af Amer 105, Est GFR (MDRD) Non-Af 87, BUN/Creatinine Ratio 15.6, Glucose 131 H, Calcium 8.7, Phosphorus 3.0 Micro: Microbiology 10/02/21 16:40 Nasal Secretion SARS-CoV-2 Antigen (Rapid) - Final Radiography Diagnostic Testing: Radiology Impression Abdomen/Pelvis CT 10/02/21 12:47 IMPRESSION: A colostomy is seen in the anterior right lower quadrant. The small bowel dimension measures upper limits of normal. Electronically Signed: Raghavendra Soto MD at 15:11 EST , Service support , KUB X-Ray 10/02/21 16:34 IMPRESSION: There is a feeding tube/ nasogastric tube noted. The tip is in the region of the stomach. Electronically Signed: Andrew Franklin MD at 16:58 EST , Service support , Physical Exam Const no apparent distress Resp normal respiratory effort GI GI Narrative: Less distention of the patient's abdomen. Soft and nontender to palpation x4 quadrants. Patient's right lower quadrant ostomy appliance has some gas within it, but there is no feculent output. The red Ray catheter placed during yesterday's exam remains in position within the os. Assessment & Plan Assessment/Plan (1) Small bowel obstruction: PLAN: Patient is hospital day 2 for admission for small bowel obstruction. He reports some evidence of return of bowel function with small amount of gas and liquid into his ostomy and resolution of his nausea symptoms. Additionally, nursing reports no output from the nasogastric tube and possible early dislodgment of the tube in the patient's inpatient course. Still, I would like some objective evidence that the patient has restored continuity of his GI tract from mouth to the ostomy. Therefore, I have ordered a small bowel series and patient is permitted to take the contrast orally. I would keep the patient in aspiration precautions during this evaluation and maintain n.p.o. until the study is complete. If the patient is successful with passage of contrast into his ostomy appliance, we will look to advance his diet. Charges/Coding Visit Charges Inpatient E&M: 79569 Subs Hosp L2
--- NOTE | 2021-10-03 12:08 | NURSING ---
PT RETURN FROM RADIOLOGY
[2021-10-03] MEDS: Heparin Injection (Vial) 5,000 UNIT/ML VIAL 5000 UNIT SC ×2 (12:13→20:58)
[2021-10-03] MEDS: Enalaprilat 1.25 MG/ML Vial 5 MG IV (12:14)
--- NOTE | 2021-10-03 12:15 | NURSING ---
1000 meds given late due to pt being off unit
--- NOTE | 2021-10-03 12:20 | CASEMGMT ---
SOO TY assessment: Face to Face with patient for initial transition planning/care coordination assessment. SOO TY introduced self and role at [facility] [place], pt voices understanding and consents to assessment. Pt is lying in bed in no distress on room air. Pt is A/Ox4 and answers all questions appropriately. Care providers, pharmacy, and demographics verified. Presentation: Pt c/o abd pain/vomiting and no stool in stoma Admitting dx: Abd pain PCP: Vignesh Specialists: None Preferred Pharmacy: [facility] [place] Insurance: AeR Prescription Benefit: AeR Living Will/HPOA: Pt does not have LW/HPOA and declines AD info. LNOK: Chelsea Thacker, ; [place]/Bettina Merrill, sis-in-law Living Arrangements: Pt lives with in 1 story home and states no concerns at home. Pt states is normally independent with ADL's. Transportation: Pt states drives self and states no transportation concerns. DME/HHC: Pt states no current DME or need for any further DME. Pt states no hx of HHC or SNF. Pt states no concerns with going home at time of discharge. Pt is retired. Pt states does not smoke cigarettes and rarely drinks ETOH. Pt states no further concerns/needs. CM to follow for any further discharge planning/needs. Advised pt to ask for CM if any further questions/concerns/needs arise, voices understanding. Pt Goal: Home Plan: [place] SOO TY
[2021-10-03] MEDS: Lactated Ringers 1,000 ML 60 ML IV (16:35)
[2021-10-04 05:00] VITALS: BP 139/81; PULSE 76; RESP 16; TEMP 37.2; O2SAT 97
[2021-10-04 06:53] LABS: Absolute Lymphocyte Count 1.33 X10^3/uL (0.83-4.51); Absolute Neutrophil Count 2.6 X10^3/uL (2.0-7.7); Eosinophil# 0.06 X10^3/uL; Eosinophils% 1.4 % (0-5); Hematocrit 31.4 % (40-54); Hemoglobin 9.5 g/dL (13.0-16.5); Lymphocyte # 1.33 X10^3/ul (0.83-4.51); Lymphocyte % 30.2 % (19-41); Mean Corp Hgb Conc 30.3 g/dL (32-36); Mean Corpuscular Hgb 28.4 pg (27.0-32.0); Mean Platelet Vol. 11.6 fl (6.2-12.0); Monocyte# 0.42 X10^3/uL; Monocyte% 9.5 % (0-10); NRBC Flagged by Analyzer 0 % (0-5); Neutrophil # 2.59 X10^3/uL (2.7-7.7); Neutrophil % 58.7 % (47-70); Platelet Count 102 K/mm3 (150-450); RBC Distribution Width CV 16.3 % (11.6-14.6); RBC Distribution Width SD 55.2 fl (35.1-43.9); Red Blood Count 3.34 M/mm3 (4.6-6.2); White Blood Count 4.4 K/mm3 (4.4-11.0)
[2021-10-04 07:17] LABS: Anion Gap 7 (5-15); BUN 28 mg/dL (7-18); BUN/Creat Ratio 24.3 RATIO (10-20); Calcium,Total 8.4 mg/dL (8.5-10.1); Chloride 106 mmol/L (98-107); Creatinine, Serum 1.15 mg/dL (0.70-1.30); EST Glomerular Filtration Rate 65 mL/min (>60); Est Glom Filt Rate - Afr Amer 79 mL/min (>60); Estimated Creatinine Clearance 50.39 ml/min; Glucose 87 mg/dL (74-106); Potassium 3.5 mmol/L (3.5-5.1); Sodium Level 141 mmol/L (136-145)
[2021-10-04 07:40] VITALS: O2SAT 96
--- NOTE | 2021-10-04 08:57 | PCM.DC ---
Discharge Instructions Diet Discharge Diet: - (Full liquid diet today and then soft diet for next 3 days and then advance to solid food but no seeds,fiber or applesauce) Dressing / Incision Call your doctor if you observe: Fever of 101 or Higher, Coldness, Increased Pain, Numbness or Tingling, Change in Color, Inability to urinate, Inability to have a bowel movement, Shortness of breath, Dizziness, Swelling in the ankles, Chest pain, Prolonged hiccupping, Increased palpitations (irregular heartbeat) and Calf discomfort Follow Up Care Test Results: Test results from this visit will be discussed in further detail at your follow-up appointment, if applicable. Discharge Plan Admission Admit Date/Time: 10/02/21 16:27 Primary Reason for Your Visit: Small bowel obstruction Attending Provider: Cayden Cordova Primary Care Provider: David Medellin Chi [employer] Providers: Mehul Laboy Discharge Orders/Prescriptions Prescriptions: Continued vitamin B complex [B Complex-Vitamin B12] Tablet 1 tab PO DAILY RF: 0 cholecalciferol (vitamin D3) 25 mcg (1,000 unit) capsule 25 mcg PO DAILY RF: 0 ascorbate calcium (vitamin C) 500 mg tablet 500 mg PO DAILY RF: 0 PreserVision AREDS [id number] capsule 1 cap PO BID RF: 0 potassium chloride 20 mEq tablet,ER particles/crystals 20 meq PO DAILY RF: 0 multivitamin [Daily Multiple] 1 EACH tablet 1 ea PO DAILY RF: 0 amlodipine 5 MG tablet 5 mg PO DAILY RF: 0 losartan 100 MG tablet 100 mg PO DAILY RF: 0 aspirin 81 MG tablet,chewable 81 mg PO DAILY@0800 RF: 0 metoprolol succinate 50 MG tablet 50 mg PO DAILY Qty: 30 RF: 0 sertraline 50 MG tablet 50 mg PO DAILY Qty: 30 RF: 0 atorvastatin 20 MG tablet 20 mg PO QHS Qty: 30 RF: 0 Changed polysaccharide iron complex 150 mg iron capsule 150 mg PO QODAY Qty: 0 RF: 0 Held glucosamine sulfate [Glucosamine] 500 mg tablet 500 mg PO DAILY RF: 0 Hold Instructions: Hold for 1 week. omega-3 fatty acids [Fish Oil Concentrate] 1,000 mg capsule 1,000 mg PO DAILY RF: 0 Hold Instructions: Hold for 1 week Referrals / Follow Up: Mehul Laboy MD [STAFF PHYSICIAN] - Within 1 Month (as needed for bowel obstruction ) Friend,Mark, DO [STAFF PHYSICIAN] - Within 2 Weeks (For a scheduled colonoscopy.) David Medellin Chi, MD [Primary Care Provider] - Within 1 Week Disposition Disposition (needs filled in before D/C Order can be placed): Home, Self Care
[2021-10-04 09:03] VITALS: BP 143/80; PULSE 74; RESP 18; TEMP 36.5; O2SAT 100
--- NOTE | 2021-10-04 09:03 | PCM.DC.SUM ---
Providers Date of Admission: 10/02/21 Primary Care Physician: Dr. David Medellin MD Consultations 10/02/21 17:58 Consult: General Surgery Routine Consulting Provider: Mehul Laboy Reason for Consult: SBO EMERGENT Consult: No MD Notified: Yes Date Notified: 10/02/21 Time Notified: 16:00 Method of Notification: Verbal Reason For Visit: ABDOMINAL PAIN Diagnosis Discharge Diagnosis (1) Small bowel obstruction: Status: Acute Code(s): K56.609 - Unspecified intestinal obstruction, unspecified as to partial versus complete obstruction Medications at Discharge Home Medications amlodipine 5 mg PO DAILY 07/20/16 losartan 100 mg PO DAILY 07/20/16 multivitamin [Daily Multiple] 1 ea PO DAILY 07/20/16 aspirin 81 mg PO DAILY@0800 tab.chew 07/21/16 atorvastatin 20 mg PO QHS #30 tablet 07/21/16 metoprolol succinate 50 mg PO DAILY #30 tablet 07/21/16 sertraline 50 mg PO DAILY #30 tablet 07/21/16 ascorbate calcium (vitamin C) 500 mg tablet 500 mg PO DAILY 09/09/21 cholecalciferol (vitamin D3) 25 mcg (1,000 unit) capsule 25 mcg PO DAILY 09/09/21 glucosamine sulfate 500 mg tablet 500 mg PO DAILY 09/09/21 omega-3 fatty acids 1,000 mg capsule 1,000 mg PO DAILY 09/09/21 potassium chloride 20 mEq tablet,extended release(part/cryst) 20 meq PO DAILY 09/09/21 vitamin B complex 1 tab PO DAILY 09/09/21 vitamins A,C,P-jdkf-spgtuq 14,320 unit-226 mg-200 unit capsule 1 cap PO BID 09/09/21 polysaccharide iron complex 150 mg PO QODAY #0 cap 10/04/21 Hospital Course Summary of Care Provided Hospital Course: This is a 81-year-old obese gentleman with history of ulcerative colitis diagnosed about 6 years ago status post total colectomy sparing rectum with end ileostomy was admitted with nausea, vomiting or abdominal pain and CT abdomen finding suggestive of possible small bowel obstruction. Patient was admitted to [facility] floor. Patient was comanaged with surgeon Dr. Laboy. Lactic acid 1.5. 1. 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 Laboy. He had 16 Kinyarwanda red Ray catheter digitalized into ileostomy without resistance. Initially patient was kept n.p.o., NG tube suction, IV fluid. Subsequently NG tube coiled up in oropharynx therefore removed. Patient had a small bowel follow-through x-ray and found no signs of bowel obstruction. Patient was started on clear liquid diet and today advance to full liquid diet. Advised to keep full liquid and then soft diet for the next several days. Advised not to take seeds, feels sorry skins of raw food. Avoid high-fiber diet. Mild hypokalemia and phosphate on lower limit of upper limit normal, potassium and phosphate corrected. 2. Ulcerative colitis: Follows Dr. Jang. 3. GERD: IV Protonix. Change to oral. 4. Coronary atherosclerosis, CAD status post stent: Hold antiplatelet and cardiac medications since n.p.o. 5. MDS with mild thrombocytopenia, mild normocytic normochromic anemia: H&H 11.4/37%. Platelet count 230,000. Platelet count decreased most likely due to heparin. Heparin discontinued 6. Hypertension: BP is elevated. Blood pressure controlled. 7. History of a stroke with minimal residual expressive aphasia: Baby aspirin resumed Discharge medication reconciliation done. Discharge follow-up instructions completed. Discharge process discussed with the patient and all questions were answered to patient's satisfaction. Follow up with Dr. Jang as a scheduled. Follow Dr. Laboy as needed Total time spent, exact 35 minutes on discharge meds reconciliation, examination, coordination of care with nurses and ancillary staff, review of imaging and blood test and discussion with the patient on follow-up instructions Physical Exam Narrative Patient did not had nausea or vomiting on clear liquid diets. Patient had good bowel emptying of the ileostomy. Diet advanced to full liquid. General: Alert, Oriented x3, Cooperative HEENT: Atraumatic, PERRLA, EOMI, Normocephalic Oral: No Gingival or Mucosal Lesions/ Ulcerations Neck: Supple, No JVD, Negative Carotid Bruits Lungs: Air entry diminished in bilateral lung bases. No crepitation/rhonchi Cardiovascular: Regular rate, Regular Rhythm, Normal S1, Normal S2, No murmurs Abdomen: Soft, bowel sounds present. Liquid stool in ileostomy bag. Nondistended. No tenderness. : No renal angle tenderness. No suprapubic tenderness. Extremities: No edema, Capillary Refill Less than 3 Seconds Skin: No rashes, No breakdown Musculoskeletal: No Tenderness to Palpation of Joints or Extremities Neurological: Cranial nerves II-XII grossly intact, DTR 2+/4 and Symmetrical, Neuro grossly intact Psych/Mental Status: Normal Affect, Appropriate. Weight / BMI Weight Weight: 206 lb 5.643 oz Body Mass Index (BMI) 31.9 ABG / Lab / Microbiology Data Result Diagrams: 10/04/21 05:44 10/04/21 05:44 Laboratory: Laboratory Results - last 24 hr 10/04/21 05:44: WBC 4.4, RBC 3.34 L, Hgb 9.5 L, Hct 31.4 L, MCV 94.0, MCH 28.4, MCHC 30.3 L, RDW Std Deviation 55.2 H, RDW Coeff of Wilian 16.3 H, Plt Count 102 L, MPV 11.6, Immature Gran % (Auto) 0.200, Neut % (Auto) 58.7, Lymph % (Auto) 30.2, [place] % (Auto) 9.5, Eos % (Auto) 1.4, Baso % (Auto) 0.0, Absolute Neuts (auto) 2.6, Absolute Lymphs (auto) 1.33, Nucleated RBC % 0 10/04/21 05:44: Sodium 141, Potassium 3.5, Chloride 106, Carbon Dioxide 28.0, Anion Gap 7, BUN 28 H, Creatinine 1.15, Estim Creat Clear Calc 50.39, Est GFR (MDRD) Af Amer 79, Est GFR (MDRD) Non-Af 65, BUN/Creatinine Ratio 24.3 H, Glucose 87, Calcium 8.4 L Microbiology: Microbiology 10/02/21 16:40 Nasal Secretion SARS-CoV-2 Antigen (Rapid) - Final Radiography Diagnostic Testing: Radiology Impression Small Bowel X-Ray 10/03/21 09:02 IMPRESSION: Limited study as noted. No sign of bowel obstruction. Electronically Signed: Min Kerr DO at 14:40 EST Tel [phone], Service support , D/C Instructions Discharge Diet: - (Full liquid diet today and then soft diet for next 3 days and then advance to solid food but no seeds,fiber or applesauce) Call your doctor if you observe: Fever of 101 or Higher, Coldness, Increased Pain, Numbness or Tingling, Change in Color, Inability to urinate, Inability to have a bowel movement, Shortness of breath, Dizziness, Swelling in the ankles, Chest pain, Prolonged hiccupping, Increased palpitations (irregular heartbeat) and Calf discomfort Meaningful Use Info Meaningful Use Diagnoses (Choose all that apply): None applicable Discharge Plan Admission Admit Date/Time: 10/02/21 16:27 Primary Reason for Your Visit: Small bowel obstruction Attending Provider: Cayden Cordova Primary Care Provider: David Medellin Chi Consulting Providers: Mehul Laboy Discharge Orders/Prescriptions Prescriptions: Continued vitamin B complex [B Complex-Vitamin B12] Tablet 1 tab PO DAILY RF: 0 cholecalciferol (vitamin D3) 25 mcg (1,000 unit) capsule 25 mcg PO DAILY RF: 0 ascorbate calcium (vitamin C) 500 mg tablet 500 mg PO DAILY RF: 0 PreserVision AREDS 14,320-226-200 zawu-it-phpn capsule 1 cap PO BID RF: 0 potassium chloride 20 mEq tablet,ER particles/crystals 20 meq PO DAILY RF: 0 multivitamin [Daily Multiple] 1 EACH tablet 1 ea PO DAILY RF: 0 amlodipine 5 MG tablet 5 mg PO DAILY RF: 0 losartan 100 MG tablet 100 mg PO DAILY RF: 0 aspirin 81 MG tablet,chewable 81 mg PO DAILY@0800 RF: 0 metoprolol succinate 50 MG tablet 50 mg PO DAILY Qty: 30 RF: 0 sertraline 50 MG tablet 50 mg PO DAILY Qty: 30 RF: 0 atorvastatin 20 MG tablet 20 mg PO QHS Qty: 30 RF: 0 Changed polysaccharide iron complex 150 mg iron capsule 150 mg PO QODAY Qty: 0 RF: 0 Held glucosamine sulfate [Glucosamine] 500 mg tablet 500 mg PO DAILY RF: 0 Hold Instructions: Hold for 1 week. omega-3 fatty acids [Fish Oil Concentrate] 1,000 mg capsule 1,000 mg PO DAILY RF: 0 Hold Instructions: Hold for 1 week Referrals / Follow Up: Mehul Laboy MD [STAFF PHYSICIAN] - Within 1 Month (as needed for bowel obstruction ) Mark Jang DO [STAFF PHYSICIAN] - Within 2 Weeks (For a scheduled colonoscopy.) David Medellin Chi, MD [Primary Care Provider] - Within 1 Week Disposition Disposition (needs filled in before D/C Order can be placed): Home, Self Care Charges/Coding Visit Charges Inpatient E&M: 04119 Disch Hosp
--- NOTE | 2021-10-04 09:27 | PN.SURG_ITS ---
Subjective Subjective Patient seen and examined during AM rounds. He is found sitting upright and out of bed in his chair. He states that he thinks he is back to his baseline. He denies any abdominal tenderness. He states that he is emptying his ostomy appliance approximately 4 times overnight. Denies any nausea and vomiting in response to advance of his diet last evening. Objective Data Objective Data Vital Signs: Vital Signs Temp Pulse Resp BP Pulse Ox 97.7 F L 74 18 143/80 H 100 10/04/21 09:03 10/04/21 09:03 10/04/21 09:03 10/04/21 09:03 10/04/21 09:03 Oxygen Delivery Method Room Air Weight: 206 lb 5.643 oz Body Mass Index (BMI) 31.9 Intake & Output: Intake and Output for Last 24 Hours 10/02/21 10/03/21 10/04/21 23:59 23:59 23:59 Intake Total 1060 / 1060 2173.3333 / 2173.3333 1494 / 1494 Output Total 300 / 300 625 / 625 500 / 500 Balance 760 / 760 1548.3333 / 1548.3333 994 / 994 Lab / Micro Data Result Diagrams: 10/04/21 05:44 10/04/21 05:44 Labs: Laboratory Results - last 24 hr 10/04/21 05:44: WBC 4.4, RBC 3.34 L, Hgb 9.5 L, Hct 31.4 L, MCV 94.0, MCH 28.4, MCHC 30.3 L, RDW Std Deviation 55.2 H, RDW Coeff of Wilian 16.3 H, Plt Count 102 L, MPV 11.6, Immature Gran % (Auto) 0.200, Neut % (Auto) 58.7, Lymph % (Auto) 30.2, [place] % (Auto) 9.5, Eos % (Auto) 1.4, Baso % (Auto) 0.0, Absolute Neuts (auto) 2.6, Absolute Lymphs (auto) 1.33, Nucleated RBC % 0 10/04/21 05:44: Sodium 141, Potassium 3.5, Chloride 106, Carbon Dioxide 28.0, Anion Gap 7, BUN 28 H, Creatinine 1.15, Estim Creat Clear Calc 50.39, Est GFR (MDRD) Af Amer 79, Est GFR (MDRD) Non-Af 65, BUN/Creatinine Ratio 24.3 H, Glucose 87, Calcium 8.4 L Micro: Microbiology 10/02/21 16:40 Nasal Secretion SARS-CoV-2 Antigen (Rapid) - Final Radiography Diagnostic Testing: Radiology Impression Small Bowel X-Ray 10/03/21 09:02 IMPRESSION: Limited study as noted. No sign of bowel obstruction. Electronically Signed: Min Kerr DO at 14:40 EST Tel [phone], Service support , Physical Exam Const oriented x3 and no apparent distress Resp normal respiratory effort GI GI Narrative: Nondistended, soft, nontender to palpation x4 quadrants. Right lower quadrant ostomy with some thin brown output in the appliance bag Assessment & Plan Assessment/Plan (1) Small bowel obstruction: PLAN: Patient is hospital day 3 for admission for small bowel obstruction. Patient had successful passage of contrast into his ostomy during a small bowel series yesterday. Thereafter, his diet was advanced first to clear liquids then to full liquids. He has tolerated this without any subsequent nausea or vomiting. He continues to have regular bowel function into his ostomy. I do suspect, this was a food bezoar that had temporarily obstructed his small bowel lumen but is now passed. Therefore, I deemed him appropriate for discharge from a surgical standpoint. I have recommended that he remain on a full liquid diet for a couple of days post discharge and then advance to a soft diet for several more days before resuming his usual diet. I have advised him to avoid insoluble fiber items such as fruit skins, flaxseed, uncooked vegetables, etc. He is due to follow-up with Dr. Jang of gastroenterology for surveillance of his rectum given his diagnosis of ulcerative colitis. However, should patient wish I am happy to see him in outpatient as well. Charges/Coding Visit Charges Inpatient E&M: 50245 Subs Hosp L2
[2021-10-04 11:00] VITALS: BP 143/80; PULSE 74; RESP 18; TEMP 36.5; O2SAT 100
== END 2021-10-04 10:55 | disposition home or self-care (01) | DRG 395 ==
LOC: ED 16:11 → MS3 16:31
PROVIDERS: Admitting Provider Internal Medicine; Emergency Provider Emergency Medicine; PCP Family Medicine Geriatric Medicine; Visit Provider Internal Medicine
DX: T18.3XXA Foreign body in small intestine, initial encounter (principal); D46.9 Myelodysplastic syndrome, unspecified; Z93.2 Ileostomy status; K51.90 Ulcerative colitis, unspecified, without complications; E66.01 Morbid (severe) obesity due to excess calories; D69.6 Thrombocytopenia, unspecified; K21.9 Gastro-esophageal reflux disease without esophagitis; D64.9 Anemia, unspecified; I25.10 Atherosclerotic heart disease of native coronary artery without angina pectoris; E87.6 Hypokalemia; Z90.49 Acquired absence of other specified parts of digestive tract; Z79.82 Long term (current) use of aspirin; I10 Essential (primary) hypertension; E78.00 Pure hypercholesterolemia, unspecified; Z87.891 Personal history of nicotine dependence; Y92.9 Unspecified place or not applicable; Z68.31 Body mass index [BMI] 31.0-31.9, adult; Z79.899 Other long term (current) drug therapy; E83.39 Other disorders of phosphorus metabolism; I69.320 Aphasia following cerebral infarction
CPT/HCPCS: 36415; 74018; 74177; 74250; 80048; 80053; 81001; 83605; 83690; 83735; 84100; 85025; 87426; 96361; 96365; 96366; 96372; 96375; 96376; 97161; 97166; 97530; 99218; 99251; 99284; J7030; J7040; J7120; Q9967; A4216; G0378; G0463; J2405

== ENCOUNTER → 2021-10-08 11:52 | Outpatient (CLI) | payer MEDICARE, SELFPAY ==
[2021-10-08 12:25] LABS: Absolute Lymphocyte Count 1.95 X10^3/uL (0.83-4.51); Absolute Neutrophil Count 1.8 X10^3/uL (2.0-7.7); Basophil# 0.01 X10^3/uL; Basophil% 0.2 % (0-1); Eosinophil# 0.11 X10^3/uL; Eosinophils% 2.6 % (0-5); Hematocrit 34.9 % (40-54); Hemoglobin 10.7 g/dL (13.0-16.5); Lymphocyte # 1.95 X10^3/ul (0.83-4.51); Lymphocyte % 45.5 % (19-41); Mean Corp Hgb Conc 30.7 g/dL (32-36); Mean Corpuscular Hgb 28.9 pg (27.0-32.0); Mean Corpuscular Volume 94.3 fL (80-94); Mean Platelet Vol. 9.7 fl (6.2-12.0); Monocyte# 0.46 X10^3/uL; Monocyte% 10.7 % (0-10); NRBC Flagged by Analyzer 0 % (0-5); Neutrophil # 1.75 X10^3/uL (2.7-7.7); Neutrophil % 40.8 % (47-70); POSITIVE COUNT YES; Platelet Count 99 K/mm3 (150-450); RBC Distribution Width SD 54.8 fl (35.1-43.9); White Blood Count 4.3 K/mm3 (4.4-11.0)
[2021-10-08 12:44] LABS: Vitamin D,25 Hydroxy 45.4 ng/mL
[2021-10-08 13:03] LABS: ALB/GLOB Ratio 0.7 RATIO (0.9-2.4); AST(SGOT) 26 U/L (15-37); Alanine Aminotransfer ALT/SGPT 25 U/L (16-61); Albumin, Serum 3.1 g/dL (3.2-5.0); Alkaline Phosphatase 87 U/L (45-117); Anion Gap 6 (5-15); BUN 13 mg/dL (7-18); BUN/Creat Ratio 11.3 RATIO (10-20); Calcium,Total 8.6 mg/dL (8.5-10.1); Chloride 106 mmol/L (98-107); Cholesterol 97 mg/dL (200); Creatinine, Serum 1.15 mg/dL (0.70-1.30); EST Glomerular Filtration Rate 65 mL/min (>60); Est Glom Filt Rate - Afr Amer 79 mL/min (>60); Globulin 4.3 g/dL (2.2-4.2); Glucose 104 mg/dL (74-106); High Density Lipoprotein 37 mg/dL; Potassium 3.7 mmol/L (3.5-5.1); Protein, Total 7.4 g/dL (6.4-8.2); Sodium Level 141 mmol/L (136-145); Thyroid Stim Hormone (TSH) 1.12 uIU/mL (0.358-3.74); Triglycerides 200 mg/dL; Very Low Density Lipoprotein 40 mg/dL (5-40)
== END ==
PROVIDERS: PCP Family Medicine Geriatric Medicine; Referring Provider Family Medicine Geriatric Medicine; Visit Provider Family Medicine Geriatric Medicine
DX: E23.6 Other disorders of pituitary gland (principal); E78.5 Hyperlipidemia, unspecified; I10 Essential (primary) hypertension; E55.9 Vitamin D deficiency, unspecified
CPT/HCPCS: 36415; 80053; 80061; 82306; 84403; 84443; 85025

== ENCOUNTER 2021-12-11 13:21 | Emergency (ER) | payer MEDICARE, SELFPAY ==
[2021-12-11 13:21] VITALS: BP 184/121; PULSE 81; RESP 16; TEMP 36; O2SAT 100; BMI 31.3
--- NOTE | 2021-12-11 13:26 | RAD_ITS ---
STUDY: X-RAY - ABDOMEN/PELVIS REASON FOR EXAM: Male, 81 years old. Constipation TECHNIQUE: Single AP view of the abdomen / pelvis. COMPARISON: None. FINDINGS: There is a moderate amount of colonic fecal material. The visualized liver, spleen and kidneys are grossly normal in size and morphology. Normal soft tissue structures. There are diffuse degenerative changes of the visualized lumbar spine. RAD/Abdomen Single View IMPRESSION: Moderate amount of fecal material is seen in the colon. Electronically Signed: Raghavendra Soto MD at 14:09 EST ,
[2021-12-11 16:46] VITALS: PULSE 79; RESP 15; O2SAT 98
[2021-12-11 16:47] VITALS: BP 175/106
[2021-12-11 18:14] VITALS: BP 167/89
--- NOTE | 2021-12-11 18:41 | EDS_ITS ---
HPI HPI - GI History of Present Illness Chief Complaint: Constipation Informant: patient and spouse/S.O. Abdominal Pain/Flank Pain Onset: Yesterday Context: Gradual Onset Timing: Continuous Current Severity: Mild Maximum Severity: Mild Nausea/Vomiting/Emesis GI Symptom: Positive for Nausea; Negative for Vomiting Onset: Yesterday Diarrhea/Melena/Hematochezia GI Symptom: Negative for Diarrhea, Melena and Hematochezia Associated Symptoms Associated Symptoms: Negative for Dysuria, Frequency and Hematuria Narrative Narrative: 81-year-old male history of a colectomy and yesterday afternoon he states he started having some mild nausea and decreased stool in his colostomy bag. He did have a bowel obstruction last September. He denies any pain. He said while he has been waiting he has developed stool and gas in his bag and nothing since resolved. He denies any fever. He denies any abdominal pain. Prior similar symptoms: Yes Recent Illness/Hospitalization: No PFSH PFS Medical History Chronic GI bleeding Ulcerative colitis Home Medications amlodipine 5 mg PO DAILY 07/20/16 [History Last Taken 07/20/16] losartan 100 mg PO DAILY 07/20/16 [History Last Taken 07/20/16] multivitamin [Daily Multiple] 1 ea PO DAILY 07/20/16 [History Last Taken 07/19/16] aspirin 81 mg PO DAILY@0800 tab.chew 07/21/16 [Rx Last Taken Unknown] atorvastatin 20 mg PO QHS #30 tablet 07/21/16 [Rx Last Taken Unknown] metoprolol succinate 50 mg PO DAILY #30 tablet 07/21/16 [Rx Last Taken Unknown] sertraline 50 mg PO DAILY #30 tablet 07/21/16 [Rx Last Taken Unknown] ascorbate calcium (vitamin C) 500 mg tablet 500 mg PO DAILY 09/09/21 [History Last Taken Unknown] cholecalciferol (vitamin D3) 25 mcg (1,000 unit) capsule 25 mcg PO DAILY 09/09/21 [History Last Taken Unknown] glucosamine sulfate 500 mg tablet 500 mg PO DAILY 09/09/21 [History Last Taken Unknown] omega-3 fatty acids 1,000 mg capsule 1,000 mg PO DAILY 09/09/21 [History Last Taken Unknown] potassium chloride 20 mEq tablet,extended release(part/cryst) 20 meq PO DAILY 09/09/21 [History Last Taken Unknown] vitamin B complex 1 tab PO DAILY 09/09/21 [History Last Taken Unknown] vitamins A,C,M-wffv-yrgzrq 14,320 unit-226 mg-200 unit capsule 1 cap PO BID 09/09/21 [History Last Taken Unknown] polysaccharide iron complex 150 mg PO QODAY #0 cap 10/04/21 [Rx Last Taken Unknown] Allergy/AdvReac Type Severity Reaction Status Date / Time No Known Allergies Allergy Verified 12/11/21 13:24 Social History Smoking Status: Former smoker ROS ROS ED ROS Narrative Constipation. Review of Systems ROS Unobtainable: Denies due to encephalopathy Constitutional Constitutional ED: Denies fever(s) ENT ENT ED: Denies ear pain Cardiovascular Cardiovascular: Denies chest pain Respiratory/Chest Respiratory/Chest: Denies dyspnea Gastrointestinal Gastrointestinal: Reports constipation and nausea; Denies abdominal pain, diarrhea, melena or vomiting Genitourinary Genitourinary ED: Denies dysuria Musculoskeletal Musculoskeletal: Denies myalgias Integumentary Denies rash Neurologic Neurologic: Denies headache(s) Psychiatric Psychiatric: Denies depression Endocrine Endocrinology: Denies polyuria Hematologic/Lymphatic Hematologic/Lymphatic: Denies easy bruising Allergic/Immunologic Allergic/Immunologic ED: Denies urticaria EXAM Physical Exam Narrative Exam Narrative: Moran male no acute distress. Vital signs stable afebrile. H EENT exam unremarkable. Moist remembers. Lungs are clear. Heart regular rhythm rate about 80 no murmur. Abdomen soft nondistended normal bowel sounds no peritoneal signs. No signs of obstruction. He does have right lower qu adrant colostomy currently is full with brown stool and air. There is no signs of obstruction. He does have a hernia around his ostomy site which she has had. His abdomen is pain-free. Otherwise exam unremarkable. Const Vital Signs: 12/11/21 13:21 12/11/21 16:46 12/11/21 16:47 Temperature 96.8 F L Temperature Source Temporal Pulse Rate 81 79 Respiratory Rate 16 15 Blood Pressure 184/121 H 175/106 H Blood Pressure Mean 142 129 Pulse Ox 100 98 Oxygen Delivery Method Room Air Room Air 12/11/21 18:14 Temperature Temperature Source Pulse Rate Respiratory Rate Blood Pressure 167/89 H Blood Pressure Mean 115 Pulse Ox Oxygen Delivery Method General Appearance ED: Negative for pallor HEENT Reports moist mucous membranes normocephalic and atraumatic Eyes PERRL and EOMs intact bilaterally Neck no lymphadenopathy, supple and no JVD General: Negative for tenderness Resp normal respiratory effort and clear to auscultation bilaterally Auscultation: Negative for rales, rhonchi, wheezes or diminished lung sounds Cardio regular rate, regular rhythm, S1 normal heart sound, S2 normal heart sound and no murmurs GI non-tender, non-distended and no masses GI Narrative: Colostomy bag full of loose brown stool and air. No melena. Auscultation: normoactive bowel sounds Palpation: soft; Negative for tender, guarding or rigid Back/Spine no CVA tenderness General Back: Negative for CVA tenderness Extremity full ROM General Extremety ED: Negative for edema or tenderness General Extremity: Negative for edema Neuro moves all extremities Sensorium / Orientation: alert, oriented to person, oriented to place and oriented to time; Negative for orientation impaired, confused, lethargic or stuporous Motor Exam: strength 5/5 throughout Psych mental status grossly normal and thought process normal Skin no wounds General Skin Exam: Negative for jaundice or pallor Lesions: no lesions Rashes: no rashes MDM MDM MDM Narrative Medical decision making narrative: Patient with possibly a transient bowel obstruction was resolved or it might be is mechanical from the hernia by his ostomy site or he may just been constipated but now he has normal bowel function, his abdomen is nontender and he has normal bowel sounds he does not need any further testing. He can be discharged to home. Radiography Diagnostic Testing: Clinical Impression(s) from Imaging Studies KUB X-Ray 12/11/21 13:26 IMPRESSION: Moderate amount of fecal material is seen in the colon. Electronically Signed: Raghavendra Soto MD at 14:09 EST , Patient had abdominal series done and 2 views of his abdomen shows increased stool but no obstruction. Interpreted both by myself and the radiologist. Discharge Plan Triage Chief Complaint: Constipation ED Provider: Jovanny Carcamo Dx/Rx/DC Orders Clinical Impression: Constipation Instructions: ED Constipation (Adult) Prescriptions: No Action vitamin B complex [B Complex-Vitamin B12] Tablet 1 tab PO DAILY RF: 0 cholecalciferol (vitamin D3) 25 mcg (1,000 unit) capsule 25 mcg PO DAILY RF: 0 ascorbate calcium (vitamin C) 500 mg tablet 500 mg PO DAILY RF: 0 PreserVision AREDS 14,320-226-200 daiq-to-xila capsule 1 cap PO BID RF: 0 glucosamine sulfate [Glucosamine] 500 mg tablet 500 mg PO DAILY RF: 0 Hold Instructions: Hold for 1 week. omega-3 fatty acids [Fish Oil Concentrate] 1,000 mg capsule 1,000 mg PO DAILY RF: 0 Hold Instructions: Hold for 1 week potassium chloride 20 mEq tablet,ER particles/crystals 20 meq PO DAILY RF: 0 multivitamin [Daily Multiple] 1 EACH tablet 1 ea PO DAILY RF: 0 amlodipine 5 MG tablet 5 mg PO DAILY RF: 0 losartan 100 MG tablet 100 mg PO DAILY RF: 0 aspirin 81 MG tablet,chewable 81 mg PO DAILY@0800 RF: 0 metoprolol succinate 50 MG tablet 50 mg PO DAILY Qty: 30 RF: 0 sertraline 50 MG tablet 50 mg PO DAILY Qty: 30 RF: 0 atorvastatin 20 MG tablet 20 mg PO QHS Qty: 30 RF: 0 polysaccharide iron complex 150 mg iron capsule 150 mg PO QODAY Qty: 0 RF: 0 Primary Care Provider: David Medellin Chi Referrals: David Medellin Chi, MD [Primary Care Provider] - As Needed Activity Restrictions/Additional Instructions: Plenty of fluids and rest. Plenty of fiber. Any problems follow-up with your primary care physician or return. At this time you have no signs of a bowel obstruction. Disposition Disposition: Home, Self Care
[2021-12-11 18:50] VITALS: BP 159/82
== END 2021-12-11 18:51 | disposition home or self-care (01) ==
PROVIDERS: Emergency Provider Emergency Medicine; PCP Family Medicine Geriatric Medicine; Visit Provider Emergency Medicine
DX: K59.00 Constipation, unspecified (principal); Z93.3 Colostomy status; K43.5 Parastomal hernia without obstruction or gangrene; Z79.82 Long term (current) use of aspirin; Z79.899 Other long term (current) drug therapy; Z87.891 Personal history of nicotine dependence; Z90.49 Acquired absence of other specified parts of digestive tract
CPT/HCPCS: 74018; 99282

== ENCOUNTER 2021-12-18 11:04 | Outpatient (CLI) | payer MEDICARE, SELFPAY ==
[2021-12-18 12:34] LABS: Absolute Lymphocyte Count 1.75 X10^3/uL (0.83-4.51); Absolute Neutrophil Count 1.3 X10^3/uL (2.0-7.7); Basophil# 0.01 X10^3/uL; Basophil% 0.3 % (0-1); Eosinophil# 0.08 X10^3/uL; Eosinophils% 2.3 % (0-5); Hematocrit 33.3 % (40-54); Hemoglobin 10.6 g/dL (13.0-16.5); Lymphocyte # 1.75 X10^3/ul (0.83-4.51); Lymphocyte % 49.7 % (19-41); Mean Corp Hgb Conc 31.8 g/dL (32-36); Mean Corpuscular Hgb 29.8 pg (27.0-32.0); Mean Corpuscular Volume 93.5 fL (80-94); Mean Platelet Vol. 10.3 fl (6.2-12.0); Monocyte# 0.41 X10^3/uL; Monocyte% 11.6 % (0-10); NRBC Flagged by Analyzer 0 % (0-5); Neutrophil # 1.26 X10^3/uL (2.7-7.7); Neutrophil % 35.8 % (47-70); Platelet Count 113 K/mm3 (150-450); RBC Distribution Width CV 18.2 % (11.6-14.6); RBC Distribution Width SD 62.1 fl (35.1-43.9); Red Blood Count 3.56 M/mm3 (4.6-6.2); White Blood Count 3.5 K/mm3 (4.4-11.0)
== END 2021-12-18 23:59 | disposition home or self-care (01) ==
LOC: POLAB3 11:05
PROVIDERS: PCP Family Medicine Geriatric Medicine; Visit Provider Family Medicine Geriatric Medicine
DX: D50.9 Iron deficiency anemia, unspecified (principal)
CPT/HCPCS: 36415; 85025

== ENCOUNTER → 2022-04-15 | Outpatient (CLI) | payer MEDICARE, SELFPAY ==
[2022-04-15 11:04] LABS: Absolute Lymphocyte Count 1.51 X10^3/uL (0.83-4.51); Absolute Neutrophil Count 1.7 X10^3/uL (2.0-7.7); Basophil# 0.01 X10^3/uL; Basophil% 0.3 % (0-1); Eosinophil# 0.15 X10^3/uL; Hemoglobin 12.5 g/dL (13.0-16.5); Lymphocyte # 1.51 X10^3/ul (0.83-4.51); Lymphocyte % 40.3 % (19-41); Mean Corp Hgb Conc 33.8 g/dL (32-36); Mean Corpuscular Hgb 34.2 pg (27.0-32.0); Mean Corpuscular Volume 101.4 fL (80-94); Monocyte# 0.42 X10^3/uL; Monocyte% 11.2 % (0-10); NRBC Flagged by Analyzer 0 % (0-5); Neutrophil # 1.65 X10^3/uL (2.7-7.7); Neutrophil % 43.9 % (47-70); Platelet Count 101 K/mm3 (150-450); RBC Distribution Width CV 16.7 % (11.6-14.6); RBC Distribution Width SD 62.1 fl (35.1-43.9); Red Blood Count 3.65 M/mm3 (4.6-6.2); White Blood Count 3.8 K/mm3 (4.4-11.0)
[2022-04-15 11:32] LABS: Vitamin D,25 Hydroxy 34.2 ng/mL
[2022-04-15 11:36] LABS: AST(SGOT) 26 U/L (15-37); Alanine Aminotransfer ALT/SGPT 27 U/L (16-61); Albumin, Serum 3.6 g/dL (3.2-5.0); Alkaline Phosphatase 91 U/L (45-117); Anion Gap 3 (5-15); BUN 15 mg/dL (7-18); BUN/Creat Ratio 13.4 RATIO (10-20); Chloride 111 mmol/L (98-107); Creatinine, Serum 1.12 mg/dL (0.70-1.30); EST Glomerular Filtration Rate 67 mL/min (>60); Est Glom Filt Rate - Afr Amer 81 mL/min (>60); Globulin 3.7 g/dL (2.2-4.2); Glucose 111 mg/dL (74-106); Potassium 4.1 mmol/L (3.5-5.1); Protein, Total 7.3 g/dL (6.4-8.2); Sodium Level 142 mmol/L (136-145); Thyroid Stim Hormone (TSH) 1.58 uIU/mL (0.358-3.74)
== END | disposition home or self-care (01) ==
LOC: LAB 10:41
PROVIDERS: PCP Family Medicine Geriatric Medicine; Visit Provider Family Medicine Geriatric Medicine
DX: I10 Essential (primary) hypertension (principal); E55.9 Vitamin D deficiency, unspecified
CPT/HCPCS: 36415; 80053; 82306; 84443; 85025

== ENCOUNTER → 2022-05-13 | Outpatient (CLI) | payer MEDICARE, SELFPAY ==
[2022-05-13 12:11] LABS: Absolute Lymphocyte Count 1.81 X10^3/uL (0.83-4.51); Absolute Neutrophil Count 1.2 X10^3/uL (2.0-7.7); Basophil# 0.01 X10^3/uL; Basophil% 0.3 % (0-1); Eosinophil# 0.11 X10^3/uL; Eosinophils% 3.1 % (0-5); Hematocrit 39.7 % (40-54); Hemoglobin 13.3 g/dL (13.0-16.5); Lymphocyte # 1.81 X10^3/ul (0.83-4.51); Lymphocyte % 51.4 % (19-41); Mean Corp Hgb Conc 33.5 g/dL (32-36); Mean Corpuscular Hgb 34.2 pg (27.0-32.0); Mean Corpuscular Volume 102.1 fL (80-94); Mean Platelet Vol. 10.3 fl (6.2-12.0); Monocyte# 0.38 X10^3/uL; Monocyte% 10.8 % (0-10); NRBC Flagged by Analyzer 0 % (0-5); Neutrophil % 34.1 % (47-70); Platelet Count 111 K/mm3 (150-450); RBC Distribution Width CV 15.5 % (11.6-14.6); RBC Distribution Width SD 57.8 fl (35.1-43.9); Red Blood Count 3.89 M/mm3 (4.6-6.2); White Blood Count 3.5 K/mm3 (4.4-11.0)
[2022-05-13 12:31] LABS: Anion Gap 3 (5-15); BUN 13 mg/dL (7-18); BUN/Creat Ratio 14.1 RATIO (10-20); Chloride 109 mmol/L (98-107); Creatinine, Serum 0.92 mg/dL (0.70-1.30); EST Glomerular Filtration Rate 84 mL/min (>60); Est Glom Filt Rate - Afr Amer 102 mL/min (>60); Glucose 118 mg/dL (74-106); Sodium Level 141 mmol/L (136-145)
== END | disposition home or self-care (01) ==
PROVIDERS: PCP Family Medicine Geriatric Medicine; Visit Provider Family Medicine Geriatric Medicine
DX: I10 Essential (primary) hypertension (principal); E78.5 Hyperlipidemia, unspecified; E55.9 Vitamin D deficiency, unspecified
CPT/HCPCS: 36415; 80048; 85025

== ENCOUNTER → 2022-05-28 | Outpatient (CLI) | payer MEDICARE, SELFPAY ==
[2022-05-28 11:36] LABS: Anion Gap 1 (5-15); BUN 15 mg/dL (7-18); BUN/Creat Ratio 15.9 RATIO (10-20); Calcium,Total 9.4 mg/dL (8.5-10.1); Chloride 105 mmol/L (98-107); Creatinine, Serum 0.94 mg/dL (0.70-1.30); EST Glomerular Filtration Rate 82 mL/min (>60); Est Glom Filt Rate - Afr Amer 99 mL/min (>60); Glucose 111 mg/dL (74-106); Potassium 3.4 mmol/L (3.5-5.1); Sodium Level 140 mmol/L (136-145)
== END | disposition home or self-care (01) ==
LOC: LAB 10:53
PROVIDERS: PCP Family Medicine Geriatric Medicine; Referring Provider Family Medicine Geriatric Medicine; Visit Provider Family Medicine Geriatric Medicine
DX: I10 Essential (primary) hypertension (principal)
CPT/HCPCS: 36415; 80048

== ENCOUNTER → 2022-10-12 | Outpatient (CLI) | payer MEDICARE, SELFPAY ==
[2022-10-12 12:29] LABS: Absolute Lymphocyte Count 2.25 X10^3/uL (0.83-4.51); Absolute Neutrophil Count 1.7 X10^3/uL (2.0-7.7); Basophil# 0.01 X10^3/uL; Basophil% 0.2 % (0-1); Eosinophil# 0.18 X10^3/uL; Eosinophils% 3.9 % (0-5); Hematocrit 40.2 % (40-54); Hemoglobin 13.2 g/dL (13.0-16.5); Lymphocyte # 2.25 X10^3/ul (0.83-4.51); Lymphocyte % 48.9 % (19-41); Mean Corp Hgb Conc 32.8 g/dL (32-36); Mean Corpuscular Hgb 34.7 pg (27.0-32.0); Mean Corpuscular Volume 105.8 fL (80-94); Mean Platelet Vol. 9.7 fl (6.2-12.0); Monocyte# 0.48 X10^3/uL; Monocyte% 10.4 % (0-10); NRBC Flagged by Analyzer 0 % (0-5); Neutrophil # 1.67 X10^3/uL (2.7-7.7); Neutrophil % 36.4 % (47-70); Platelet Count 105 K/mm3 (150-450); RBC Distribution Width CV 14.6 % (11.6-14.6); RBC Distribution Width SD 57.4 fl (35.1-43.9); White Blood Count 4.6 K/mm3 (4.4-11.0)
[2022-10-12 13:01] LABS: Vitamin D,25 Hydroxy 36.8 ng/mL
[2022-10-12 13:32] LABS: ALB/GLOB Ratio 0.9 RATIO (0.9-2.4); AST(SGOT) 27 U/L (15-37); Alanine Aminotransfer ALT/SGPT 31 U/L (16-61); Albumin, Serum 3.5 g/dL (3.2-5.0); Alkaline Phosphatase 101 U/L (45-117); Anion Gap 6 (5-15); BUN 13 mg/dL (7-18); BUN/Creat Ratio 12.6 RATIO (10-20); Chloride 105 mmol/L (98-107); Cholesterol 146 mg/dL (200); Creatinine, Serum 1.03 mg/dL (0.70-1.30); EST Glomerular Filtration Rate 74 mL/min (>60); Est Glom Filt Rate - Afr Amer 89 mL/min (>60); Globulin 3.7 g/dL (2.2-4.2); Glucose 122 mg/dL (74-106); High Density Lipoprotein 44 mg/dL; Potassium 3.6 mmol/L (3.5-5.1); Protein, Total 7.2 g/dL (6.4-8.2); Sodium Level 141 mmol/L (136-145); Thyroid Stim Hormone (TSH) 2.09 uIU/mL (0.358-3.74); Triglycerides 214 mg/dL; Very Low Density Lipoprotein 43 mg/dL (5-40)
== END | disposition home or self-care (01) ==
PROVIDERS: PCP Family Medicine Geriatric Medicine; Visit Provider Family Medicine Geriatric Medicine
DX: I10 Essential (primary) hypertension (principal); E78.5 Hyperlipidemia, unspecified; E55.9 Vitamin D deficiency, unspecified
CPT/HCPCS: 36415; 80053; 80061; 82306; 84443; 85025

== ENCOUNTER → 2023-01-19 | Outpatient (CLI) | payer MEDICARE, SELFPAY ==
[2023-01-19 13:57] LABS: Creatinine, Serum 0.96 mg/dL (0.70-1.30); EST Glomerular Filtration Rate 80 mL/min (>60); Est Glom Filt Rate - Afr Amer 97 mL/min (>60)
== END | disposition home or self-care (01) ==
PROVIDERS: PCP Family Medicine Geriatric Medicine; Referring Provider Physician Assistant; Visit Provider Physician Assistant
DX: I25.10 Atherosclerotic heart disease of native coronary artery without angina pectoris (principal); I63.9 Cerebral infarction, unspecified; D50.9 Iron deficiency anemia, unspecified
CPT/HCPCS: 36415; 82565

== ENCOUNTER → 2023-04-22 | Outpatient (CLI) | payer MEDICARE, SELFPAY ==
[2023-04-22 12:06] LABS: Absolute Lymphocyte Count 1.87 X10^3/uL (0.83-4.51); Absolute Neutrophil Count 1.6 X10^3/uL (2.0-7.7); Basophil# 0.02 X10^3/uL; Basophil% 0.5 % (0-1); Eosinophil# 0.09 X10^3/uL; Eosinophils% 2.2 % (0-5); Hematocrit 39.3 % (40-54); Hemoglobin 13.7 g/dL (13.0-16.5); Lymphocyte # 1.87 X10^3/ul (0.83-4.51); Lymphocyte % 46.5 % (19-41); Mean Corp Hgb Conc 34.9 g/dL (32-36); Mean Corpuscular Hgb 35.9 pg (27.0-32.0); Mean Corpuscular Volume 102.9 fL (80-94); Mean Platelet Vol. 10.2 fl (6.2-12.0); Monocyte# 0.42 X10^3/uL; Monocyte% 10.4 % (0-10); NRBC Flagged by Analyzer 0 % (0-5); Neutrophil # 1.61 X10^3/uL (2.7-7.7); Neutrophil % 40.2 % (47-70); Platelet Count 100 K/mm3 (150-450); RBC Distribution Width CV 14.3 % (11.6-14.6); RBC Distribution Width SD 54.1 fl (35.1-43.9); Red Blood Count 3.82 M/mm3 (4.6-6.2)
[2023-04-22 13:01] LABS: Vitamin D,25 Hydroxy 45.9 ng/mL
[2023-04-22 13:15] LABS: ALB/GLOB Ratio 0.9 RATIO (0.9-2.4); AST(SGOT) 23 U/L (15-37); Alanine Aminotransfer ALT/SGPT 23 U/L (16-61); Albumin, Serum 3.3 g/dL (3.2-5.0); Alkaline Phosphatase 99 U/L (45-117); Anion Gap 3 (5-15); BUN 16 mg/dL (7-18); Calcium,Total 8.9 mg/dL (8.5-10.1); Chloride 108 mmol/L (98-107); Creatinine, Serum 0.94 mg/dL (0.70-1.30); EST Glomerular Filtration Rate 82 mL/min (>60); Est Glom Filt Rate - Afr Amer 99 mL/min (>60); Globulin 3.8 g/dL (2.2-4.2); Glucose 115 mg/dL (74-106); Potassium 3.7 mmol/L (3.5-5.1); Protein, Total 7.1 g/dL (6.4-8.2); Sodium Level 142 mmol/L (136-145); Thyroid Stim Hormone (TSH) 1.52 uIU/mL (0.358-3.74)
[2023-04-25 09:41] LABS: Cholesterol 130 mg/dL (200); High Density Lipoprotein 40 mg/dL; Triglycerides 131 mg/dL; Very Low Density Lipoprotein 26 mg/dL (5-40)
== END | disposition home or self-care (01) ==
LOC: LAB 11:23
PROVIDERS: PCP Family Medicine Geriatric Medicine; Referring Provider Family Medicine Geriatric Medicine; Visit Provider Family Medicine Geriatric Medicine
DX: I10 Essential (primary) hypertension (principal); E55.9 Vitamin D deficiency, unspecified; E78.5 Hyperlipidemia, unspecified
CPT/HCPCS: 36415; 80053; 80061; 82306; 84443; 85025

== ENCOUNTER → 2023-10-21 | Outpatient (CLI) | payer MEDICARE, SELFPAY ==
[2023-10-21 13:39] LABS: Absolute Lymphocyte Count 2.02 X10^3/uL (0.83-4.51); Absolute Neutrophil Count 1.4 X10^3/uL (2.0-7.7); Basophil# 0.02 X10^3/uL; Basophil% 0.5 % (0-1); Eosinophil# 0.21 X10^3/uL; Eosinophils% 5.1 % (0-5); Hematocrit 38.8 % (40-54); Hemoglobin 13.3 g/dL (13.0-16.5); Lymphocyte # 2.02 X10^3/ul (0.83-4.51); Lymphocyte % 49.1 % (19-41); Mean Corp Hgb Conc 34.3 g/dL (32-36); Mean Corpuscular Hgb 34.8 pg (27.0-32.0); Mean Corpuscular Volume 101.6 fL (80-94); Mean Platelet Vol. 9.2 fl (6.2-12.0); Monocyte# 0.46 X10^3/uL; Monocyte% 11.2 % (0-10); NRBC Flagged by Analyzer 0 % (0-5); Neutrophil # 1.39 X10^3/uL (2.7-7.7); Neutrophil % 33.9 % (47-70); Platelet Count 103 K/mm3 (150-450); RBC Distribution Width CV 14.1 % (11.6-14.6); RBC Distribution Width SD 52.4 fl (35.1-43.9); Red Blood Count 3.82 M/mm3 (4.6-6.2); White Blood Count 4.1 K/mm3 (4.4-11.0)
[2023-10-21 14:08] LABS: Vitamin D,25 Hydroxy 38.9 ng/mL
[2023-10-21 14:16] LABS: ALB/GLOB Ratio 0.9 RATIO (0.9-2.4); AST(SGOT) 26 U/L (15-37); Alanine Aminotransfer ALT/SGPT 25 U/L (16-61); Albumin, Serum 3.4 g/dL (3.2-5.0); Alkaline Phosphatase 117 U/L (45-117); Anion Gap 6 (5-15); BUN 17 mg/dL (7-18); BUN/Creat Ratio 14.2 RATIO (10-20); Calcium,Total 9.2 mg/dL (8.5-10.1); Chloride 108 mmol/L (98-107); EST Glomerular Filtration Rate 62 mL/min (>60); Est Glom Filt Rate - Afr Amer 75 mL/min (>60); Globulin 3.8 g/dL (2.2-4.2); Glucose 105 mg/dL (74-106); Potassium 3.4 mmol/L (3.5-5.1); Protein, Total 7.2 g/dL (6.4-8.2); Sodium Level 140 mmol/L (136-145); Thyroid Stim Hormone (TSH) 2.46 uIU/mL (0.358-3.74)
== END | disposition home or self-care (01) ==
LOC: LAB 13:15
PROVIDERS: PCP Family Medicine Geriatric Medicine; Referring Provider Family Medicine Geriatric Medicine; Visit Provider Family Medicine Geriatric Medicine
DX: I10 Essential (primary) hypertension (principal); E55.9 Vitamin D deficiency, unspecified
CPT/HCPCS: 36415; 80053; 82306; 84443; 85025

== ENCOUNTER → 2023-10-27 | Outpatient (CLI) | payer MEDICARE, SELFPAY ==
[2023-10-27 13:03] LABS: Cholesterol 135 mg/dL (200); High Density Lipoprotein 40 mg/dL; Triglycerides 188 mg/dL; Very Low Density Lipoprotein 38 mg/dL (5-40)
== END | disposition home or self-care (01) ==
LOC: MFPLAB 10:57 → POLAB3 10-28 10:30
PROVIDERS: PCP Family Medicine Geriatric Medicine; Visit Provider Family Medicine Geriatric Medicine
DX: E78.5 Hyperlipidemia, unspecified (principal)
CPT/HCPCS: 36415; 80061

== ENCOUNTER → 2024-04-26 | Outpatient (CLI) | payer MEDICARE, SELFPAY ==
[2024-04-26 13:31] LABS: Absolute Lymphocyte Count 3.09 X10^3/uL (0.83-4.51); Absolute Neutrophil Count 2.1 X10^3/uL (2.0-7.7); Basophil# 0.02 X10^3/uL; Basophil% 0.3 % (0-1); Eosinophil# 0.19 X10^3/uL; Eosinophils% 3.1 % (0-5); Hematocrit 38.3 % (40-54); Hemoglobin 12.9 g/dL (13.0-16.5); Lymphocyte # 3.09 X10^3/ul (0.83-4.51); Lymphocyte % 50.7 % (19-41); Mean Corp Hgb Conc 33.7 g/dL (32-36); Mean Corpuscular Hgb 34.6 pg (27.0-32.0); Mean Corpuscular Volume 102.7 fL (80-94); Mean Platelet Vol. 10.1 fl (6.2-12.0); Monocyte# 0.73 X10^3/uL; NRBC Flagged by Analyzer 0 % (0-5); Neutrophil # 2.05 X10^3/uL (2.7-7.7); Neutrophil % 33.7 % (47-70); Platelet Count 112 K/mm3 (150-450); RBC Distribution Width CV 14.5 % (11.6-14.6); RBC Distribution Width SD 54.7 fl (35.1-43.9); Red Blood Count 3.73 M/mm3 (4.6-6.2); White Blood Count 6.1 K/mm3 (4.4-11.0)
[2024-04-26 13:49] LABS: Vitamin D,25 Hydroxy 36.8 ng/mL
[2024-04-26 13:58] LABS: ALB/GLOB Ratio 0.9 RATIO (0.9-2.4); AST(SGOT) 27 U/L (15-37); Alanine Aminotransfer ALT/SGPT 22 U/L (16-61); Albumin, Serum 3.5 g/dL (3.2-5.0); Alkaline Phosphatase 101 U/L (45-117); Anion Gap 4 (5-15); BUN 17 mg/dL (7-18); BUN/Creat Ratio 16.8 RATIO (10-20); Chloride 106 mmol/L (98-107); Cholesterol 139 mg/dL (200); Creatinine, Serum 1.01 mg/dL (0.70-1.30); EST Glomerular Filtration Rate 75 mL/min (>60); Est Glom Filt Rate - Afr Amer 91 mL/min (>60); Globulin 3.7 g/dL (2.2-4.2); Glucose 81 mg/dL (74-106); High Density Lipoprotein 43 mg/dL; Potassium 3.6 mmol/L (3.5-5.1); Protein, Total 7.2 g/dL (6.4-8.2); Sodium Level 139 mmol/L (136-145); Triglycerides 284 mg/dL; Very Low Density Lipoprotein 57 mg/dL (5-40)
== END | disposition home or self-care (01) ==
LOC: LAB 12:21
PROVIDERS: PCP Family Medicine Geriatric Medicine; Referring Provider Family Medicine Geriatric Medicine; Visit Provider Family Medicine Geriatric Medicine
DX: I10 Essential (primary) hypertension (principal); E78.5 Hyperlipidemia, unspecified; E55.9 Vitamin D deficiency, unspecified
CPT/HCPCS: 36415; 80053; 80061; 82306; 84443; 85025

== ENCOUNTER → 2024-11-08 | Outpatient (CLI) | payer MEDICARE, SELFPAY ==
[2024-11-08 12:29] LABS: Vitamin D,25 Hydroxy 41.8 ng/mL
[2024-11-08 12:34] LABS: Absolute Lymphocyte Count 2.62 X10^3/uL (0.83-4.51); Basophil# 0.02 X10^3/uL; Basophil% 0.4 % (0-1); Eosinophil# 0.19 X10^3/uL; Eosinophils% 3.4 % (0-5); Hematocrit 40.1 % (40-54); Hemoglobin 13.6 g/dL (13.0-16.5); Lymphocyte # 2.62 X10^3/ul (0.83-4.51); Lymphocyte % 47.3 % (19-41); Mean Corp Hgb Conc 33.9 g/dL (32-36); Mean Corpuscular Hgb 34.1 pg (27.0-32.0); Mean Corpuscular Volume 100.5 fL (80-94); Mean Platelet Vol. 10.1 fl (6.2-12.0); Monocyte# 0.68 X10^3/uL; Monocyte% 12.3 % (0-10); NRBC Flagged by Analyzer 0 % (0-5); Neutrophil # 2.02 X10^3/uL (2.7-7.7); Neutrophil % 36.4 % (47-70); Platelet Count 119 K/mm3 (150-450); RBC Distribution Width CV 14.3 % (11.6-14.6); RBC Distribution Width SD 52.5 fl (35.1-43.9); Red Blood Count 3.99 M/mm3 (4.6-6.2); White Blood Count 5.5 K/mm3 (4.4-11.0)
[2024-11-08 12:38] LABS: ALB/GLOB Ratio 0.8 RATIO (0.9-2.4); AST(SGOT) 19 U/L (15-37); Alanine Aminotransfer ALT/SGPT 28 U/L (16-61); Albumin, Serum 3.4 g/dL (3.2-5.0); Alkaline Phosphatase 110 U/L (45-117); Anion Gap 4 (5-15); BUN 16 mg/dL (7-18); BUN/Creat Ratio 14.4 RATIO (10-20); Calcium,Total 9.2 mg/dL (8.5-10.1); Chloride 106 mmol/L (98-107); Creatinine, Serum 1.11 mg/dL (0.70-1.30); EST Glomerular Filtration Rate 67 mL/min (>60); Est Glom Filt Rate - Afr Amer 81 mL/min (>60); Globulin 4.1 g/dL (2.2-4.2); Glucose 97 mg/dL (74-106); Potassium 3.6 mmol/L (3.5-5.1); Protein, Total 7.5 g/dL (6.4-8.2); Sodium Level 141 mmol/L (136-145)
== END | disposition home or self-care (01) ==
LOC: POLAB3 11:46
PROVIDERS: PCP Family Medicine Geriatric Medicine; Visit Provider Family Medicine Geriatric Medicine
DX: I10 Essential (primary) hypertension (principal); E55.9 Vitamin D deficiency, unspecified
CPT/HCPCS: 36415; 80053; 82306; 84443; 85025

== ENCOUNTER → 2025-04-25 | Outpatient (CLI) | payer MEDICARE, SELFPAY ==
[2025-04-25 12:18] LABS: Hematocrit 37.2 % (40-54); Hemoglobin 12.9 g/dL (13.0-16.5); Immature Granulocytes Count 0.010 X10^3/uL (0.0-0.0); Mean Corp Hgb Conc 34.7 g/dL (32-36); Mean Corpuscular Volume 100.8 fL (80-94); Mean Platelet Vol. 10.4 fl (6.2-12.0); NRBC Flagged by Analyzer 0 % (0-5); Platelet Count 106 K/mm3 (150-450); RBC Distribution Width CV 14.0 % (11.6-14.6); RBC Distribution Width SD 51.8 fl (35.1-43.9); Red Blood Count 3.69 M/mm3 (4.6-6.2); White Blood Count 4.6 K/mm3 (4.4-11.0)
[2025-04-25 12:56] LABS: AST(SGOT) 25 U/L (<=37); Alanine Aminotransfer ALT/SGPT 18 U/L (<=46); Albumin, Serum 3.9 g/dL (3.4-4.8); Alkaline Phosphatase 106 U/L (40-129); Anion Gap 10 (5-15); BUN 18 mg/dL (4-19); BUN/Creat Ratio 19.0 RATIO (10-20); Calcium,Total 9.5 mg/dL (7.6-11.0); Carbon Dioxide 27.7 mmol/L (21.0-32.0); Chloride 104 mmol/L (98-108); Cholesterol 143 mg/dL (<=200); Globulin 3.1 g/dL (2.2-4.2); Glucose 122 mg/dL (70-99); Low Density Lipoprotein Calc. 50 mg/dL; Potassium 3.7 mmol/L (3.3-5.1); Triglycerides 268 mg/dL; Very Low Density Lipoprotein 54 mg/dL (5-40); Vitamin D,25 Hydroxy 36.0 ng/mL (30-100); cholesterol:hdl ratio screen 3.61
== END | disposition home or self-care (01) ==
LOC: LAB 11:53
PROVIDERS: PCP Family Medicine Geriatric Medicine; Referring Provider Family Medicine Geriatric Medicine; Visit Provider Family Medicine Geriatric Medicine
DX: I10 Essential (primary) hypertension (principal); E55.9 Vitamin D deficiency, unspecified; E78.5 Hyperlipidemia, unspecified
CPT/HCPCS: 36415; 80053; 80061; 82306; 84443; 85025

== ENCOUNTER → 2025-05-01 | Outpatient (CLI) | payer MEDICARE, SELFPAY | END | disposition home or self-care (01) | LOC: POLAB3 13:54 | PROVIDERS: PCP Family Medicine Geriatric Medicine; Visit Provider Family Medicine Geriatric Medicine | DX: T14.90XA Injury, unspecified, initial encounter (principal); W57.XXXA Bitten or stung by nonvenomous insect and other nonvenomous arthropods, initial encounter | CPT/HCPCS: 36415; 86617 ==

== ENCOUNTER 2025-08-20 11:35 | Emergency (ER) | payer MEDICARE, SELFPAY ==
[2025-08-20 11:36] VITALS: BP 154/90; PULSE 66; RESP 16; TEMP 36.8; O2SAT 99; BMI 31.8
--- NOTE | 2025-08-20 12:46 | EKG12_ITS ---
Test Reason : CP
[2025-08-20] MEDS: Lidocaine 5% Patch 1 PATCH TOPICAL (12:53)
[2025-08-20] MEDS: HYDROcodone Bitartrate/Apap 5/325 Tablet PO (12:54)
[2025-08-20 12:59] LABS: Hematocrit 38.7 % (40-54); Hemoglobin 13.6 g/dL (13.0-16.5); Immature Granulocytes Count 0.020 X10^3/uL (0.0-0.0); Mean Corp Hgb Conc 35.1 g/dL (32-36); Mean Corpuscular Volume 101.8 fL (80-94); Mean Platelet Vol. 9.9 fl (6.2-12.0); NRBC Flagged by Analyzer 0 % (0-5); POSITIVE COUNT YES; Platelet Count 95 K/mm3 (150-450); RBC Distribution Width CV 14.3 % (11.6-14.6); RBC Distribution Width SD 53.6 fl (35.1-43.9); Red Blood Count 3.80 M/mm3 (4.6-6.2); White Blood Count 4.2 K/mm3 (4.4-11.0)
[2025-08-20 13:00] LABS: Differential Indicated SCAN CRITERIA MET
--- NOTE | 2025-08-20 13:05 | RAD_ITS ---
RAD/Chest PA and Lateral
--- NOTE | 2025-08-20 13:16 | ED.VIS.BACK ---
HPI History of Present Illness Chief Complaint: Back Informant: patient Narrative Narrative: Patient is 85-year-old male with history of coronary artery disease, prior stents, stroke, ulcerative colitis, GERD and myelodysplastic syndrome presenting for evaluation for approximately 5 days of back pain. States couple days before that he carried a 40 pound bag of bird seed as well as 240 pound bags of salt down to the basement but states that not unusual for him to do it. He does yard work but mostly just sitting on a tractor. Denies any falls or injuries. States the pain is intermittent and just next to his right shoulder blade. It is worse with certain movements. Tried going to the chiropractor with no relief. Is taking ibuprofen at night but not sure if it is really helping. Last night he was trying to sleep and then had to moved to his recliner and then he started to have some pain rating down his right arm. The pain is always in the same location. Denies any shortness of breath or change in pain with breathing. Because of his cardiac history however they came to the ER for further evaluation. No numbness or tingling appreciated. No other complaints or concerns at this time. [facility] Medical History Carotid artery stenosis Wears glasses Cancer Anemia Sleep apnea Hypertension History of heart attack Stroke/cerebrovascular accident Ulcerative colitis Chronic GI bleeding Home Medications ?Medication ?Instructions ?Recorded ?Last Taken ?Type multivitamin (Daily Multiple 1 ea PO DAILY health 07/20/16 08/20/25 History tablet) aspirin 81 mg chewable tablet 81 mg PO DAILY@0800 HEART 07/21/16 08/19/25 Rx metoprolol succinate 50 mg 50 mg PO DAILY #30 TABLETS 07/21/16 08/20/25 Rx tablet,extended release 24 hr ascorbate calcium (vitamin C) 500 500 mg PO DAILY SUPPLEMENT 09/09/21 08/20/25 History mg tablet cholecalciferol (vitamin D3) 25 25 mcg PO DAILY SUPPLEMENT 09/09/21 08/20/25 History mcg (1,000 unit) capsule glucosamine sulfate 500 mg tablet 500 mg PO DAILY SUPPLEMENT 09/09/21 08/20/25 History (Glucosamine) omega-3 fatty acids 1,000 mg 1,000 mg PO DAILY health 09/09/21 08/18/25 History capsule (Fish Oil Concentrate) potassium chloride 20 mEq 20 meq PO DAILY health 09/09/21 08/20/25 History tablet,extended release(part/cryst) vitamin B complex (B 1 tab PO DAILY health 09/09/21 08/20/25 History Complex-Vitamin B12 tablet) vitamins A,C,N-fuju-zicxyd 4,296 1 cap PO BID health 09/09/21 08/20/25 History mcg-226 mg-90 mg capsule (PreserVision AREDS) atorvastatin 80 mg tablet 80 mg PO QHS CHOLESTEROL #30 tabs 01/19/23 08/19/25 Rx amlodipine 10 mg tablet 10 mg PO DAILY HEART 08/20/25 08/20/25 History hydrocodone-acetaminophen 5-325mg 1 tab PO Q8H PRN Pain 3 days #10 08/20/25 Unknown Rx 5mg-325mg TABLETS ketoconazole 2 % topical cream 1 applic topical BID DRY SKIN 08/20/25 08/13/25 History valsartan 320 1 tab PO DAILY BLOOD PRESSURE 08/20/25 08/20/25 History mg-hydrochlorothiazide 12.5 mg tablet Allergy/AdvReac Type Severity Reaction Status Date / Time Penicillins Allergy unknown Verified 04/28/22 15:25 Family History Father CVA (cerebral vascular accident) Mother Cancer breast cancer Surgical History Hx of tonsillectomy History of arthroplasty of right ankle Hx of cholecystectomy H/O hernia repair History of partial surgical removal of colon Social History Smoking Status: Former smoker how long ago did patient quit smokin years ago ROS ROS ED Constitutional Constitutional ED: Denies chills or fever(s) Eyes Eyes: Denies change in vision Cardiovascular Cardiovascular: Denies chest pain or palpitations Respiratory/Chest Respiratory/Chest: Denies dyspnea or dyspnea on exertion Gastrointestinal Gastrointestinal: Denies nausea or vomiting Musculoskeletal Musculoskeletal: Reports back pain; Denies myalgias Integumentary Denies rash Neurologic Neurologic: Denies paresthesias or weakness Psychiatric Psychiatric: Denies anxiety or depression Hematologic/Lymphatic Hematologic/Lymphatic: Denies easy bleeding or easy bruising EXAM Physical Exam Const Vital Signs: 08/20/25 11:36 08/20/25 12:46 08/20/25 13:36 Temperature 98.2 F Temperature Source Oral Pulse Rate 66 46 L Respiratory Rate 16 Blood Pressure 154/90 H 163/96 H Blood Pressure Mean 111 118 Pulse Ox 99 97 Oxygen Delivery Method Room Air Room Air Positive well nourished and well developed General Appearance ED: well developed and NAD HEENT Reports moist mucous membranes Neck supple and no JVD Resp normal respiratory effort and clear to auscultation bilaterally Cardio regular rate and regular rhythm GI normal to inspection, nondistended, normoactive bowel sounds Back/Spine Back/Spine Narrative: No lumbar tenderness to palpation. Cervical Spine: Negative for cervical spine tenderness Thoracic Spine / Upper Back: paraspinal muscle tenderness right T5, T6 and T7 Extremity normal to inspection Extremity Narrative: Mild increase in pain with active abduction of the arm against resistance in his back. Normal strength of the upper extremities. Normal movements of the hands. General Extremety ED: Negative for edema or tenderness General Extremity: Negative for edema Neuro oriented x3 and no sensory deficits noted Sensorium / Orientation: alert Motor Exam: strength 5/5 throughout Psych mental status grossly normal Skin no rashes or lesions noted and no wounds MDM MDM MDM Narrative Medical decision making narrative: Patient evaluated for approximately 5 days of this intermittent thoracic back pain. Slightly more muscle skeletal and is worsened by certain head movements however given his age and cardiac history will obtain cardiac workup including chest x-ray, troponins, a CBC and BMP looking for more severe/insidious causes. Is given Lidoderm patch and Fackler in the ER for symptom control. He does not report any shortness of breath or pleuritic component so I do not think workup for pulmonary emboli is indicated. Differential does include is not limited to thoracic strain/spasm, pneumothorax, pleural effusion referred cardiac symptoms. Lower suspicion for thoracic fracture/compression fractures did not have any bony tenderness. No overlying rash consistent with shingles. CBC shows a mild leukopenia and thrombocytopenia but at his baseline. BMP normal. High-sensitivity troponin minimally elevated at 24 and then 25 but stable. EKG shows a left bundle branch block but this is consistent with his prior EKGs. On repeat evaluation patient's feeling much improved with Lidoderm patch and Fackler. We discharged home with a short course of Fackler instructed to use [id number] Lidoderm patches (4% extra strength Salonpas). Discussed risk and benefits of opioids for pain medication. Discussed he can also break them in half if he feels that 1 pill is too strong. Instructed on the points of following up outpatient with his chiropractor as well as his primary care doctor. Agree that likely at this time this is more of muscle skeletal pain. Given return precautions. Discharged home in stable condition. Lab Data Attestation: I reviewed the patient's lab results. Labs: Laboratory Results - last 24 hr 08/20/25 08/20/25 12:50 15:11 WBC 4.2 L RBC 3.80 L Hgb 13.6 Hct 38.7 L MCV 101.8 H MCH 35.8 H MCHC 35.1 RDW Std Deviation 53.6 H RDW Coeff of Wilian 14.3 Plt Count 95 L MPV 9.9 Immature Gran % (Auto) 0.500 Neut % (Auto) 32.9 L Lymph % (Auto) 50.0 H Boone % (Auto) 12.3 H Eos % (Auto) 3.8 Baso % (Auto) 0.5 Absolute Neuts (auto) 1.4 L Absolute Lymphs (auto) 2.11 Nucleated RBC % 0 Differential Comment SCANNED Platelet Estimate MOD DEC Sodium 141 Potassium 3.7 Chloride 104 Carbon Dioxide 30.0 Anion Gap 7 BUN 16 Creatinine 0.81 Estim Creat Clear Calc 77.24 Est GFR (MDRD) Non-Af 88 BUN/Creatinine Ratio 20.3 H Glucose 94 Calcium 9.5 Troponin T High Sens 24 H Troponin T Hi Sens 2 Hr 25 H Radiography Chest X-Ray - ED: 2 View, Read by ED Physician, Read by Radiologist and No Acute Disease Diagnostic Testing: Clinical Impression(s) from Imaging Studies Chest X-Ray 08/20/25 13:05 IMPRESSION: No acute cardiopulmonary process. Reading Location: [facility] Rhythm Strip Rhythm Strip: Sinus Rhythm Rate: 56 Ectopy: None EKG Initial EKG: Attestation: I personally reviewed and interpreted this EKG as follows: Interpretation: Sinus Bradycardia Comments: Sinus bradycardia at a rate of 56 bpm with first-degree AV block and and PACs and bigeminy Left axis deviation Left bundle branch block No significant change compared to prior EKG Discharge Plan Triage Chief Complaint: Back ED Provider: Barby Diaz Dx/Rx/DC Orders Clinical Impression: Strain of thoracic back region Instructions: ED Back Sprain/Strain Prescriptions: New hydrocodone-acetaminophen 5-325 mg tablet 1 tab PO Q8H PRN (Reason: Pain) 3 Days Qty: 10 0RF No Action vitamin B complex [B Complex-Vitamin B12] Tablet 1 tab PO DAILY cholecalciferol (vitamin D3) 25 mcg (1,000 unit) capsule 25 mcg PO DAILY ascorbate calcium (vitamin C) 500 mg tablet 500 mg PO DAILY PreserVision AREDS [id number] avza-aj-ewlh capsule 1 cap PO BID glucosamine sulfate [Glucosamine] 500 mg tablet 500 mg PO DAILY Rx Instructions: administer with a meal omega-3 fatty acids [Fish Oil Concentrate] 1,000 mg capsule 1,000 mg PO DAILY potassium chloride 20 mEq tablet,ER particles/crystals 20 meq PO DAILY atorvastatin 80 mg tablet 80 mg PO QHS Qty: 30 2RF multivitamin [Daily Multiple] 1 EACH tablet 1 ea PO DAILY Patient Comments: SUPPLEMENT aspirin 81 MG tablet,chewable 81 mg PO DAILY@0800 0RF Patient Comments: heart health metoprolol succinate 50 MG tablet 50 mg PO DAILY Qty: 30 0RF Patient Comments: blood pressure amlodipine 10 mg tablet 10 mg PO DAILY valsartan-hydrochlorothiazide 320-12.5 mg tablet 1 tab PO DAILY ketoconazole 2 % cream 1 applic topical BID Primary Care Provider: David Medellin Chi Referrals: David Medellin Chi, MD [Primary Care Provider, Geriatrics] Activity Restrictions/Additional Instructions: Your heart workup was largely normal/reassuring today. Please follow-up with Dr. Medellin especially of your pain persist. You been given a short course of prescription pain medication. This is only to be taken as needed. If you feel it is too strong you may also break them in half. As we discussed this can cause constipation so please take MiraLAX as needed for that. I also recommend using [id number] 4% extra strength Salonpas (Lidoderm) patches to help with the pain. Print Language: Gabonese Disposition Disposition: Home, Self Care
[2025-08-20 13:24] LABS: Differential Comment SCANNED
[2025-08-20 13:36] VITALS: BP 163/96; PULSE 46; O2SAT 97
[2025-08-20 15:07] LABS: Anion Gap 7 (5-15); BUN 16 mg/dL (4-19); BUN/Creat Ratio 20.3 RATIO (10-20); Calcium,Total 9.5 mg/dL (7.6-11.0); Carbon Dioxide 30.0 mmol/L (21.0-32.0); Chloride 104 mmol/L (98-108); Estimated Creatinine Clearance 77.24 ml/min (50-250); Glucose 94 mg/dL (70-99); Potassium 3.7 mmol/L (3.3-5.1); Troponin T High Sensitivity 24 ng/L (<=22)
[2025-08-20 16:05] LABS: Troponin T High Sens 2 HR 25 ng/L (<=22)
[2025-08-20 17:09] VITALS: BP 166/84; PULSE 59; RESP 15; TEMP 36.4; O2SAT 100
[2025-08-20 17:10] VITALS: BP 166/84; PULSE 59; RESP 15; TEMP 36.4; O2SAT 100
== END 2025-08-20 17:11 | disposition home or self-care (01) ==
PROVIDERS: Emergency Provider Emergency Medicine; PCP Family Medicine Geriatric Medicine; Visit Provider Emergency Medicine
DX: S29.012A Strain of muscle and tendon of back wall of thorax, initial encounter (principal); X58.XXXA Exposure to other specified factors, initial encounter; I25.10 Atherosclerotic heart disease of native coronary artery without angina pectoris; I10 Essential (primary) hypertension; Z95.5 Presence of coronary angioplasty implant and graft; Z79.82 Long term (current) use of aspirin; Z79.899 Other long term (current) drug therapy; Z87.891 Personal history of nicotine dependence
CPT/HCPCS: 71046; 80048; 84484; 85025; 93005; 99284; A4216